=== PATIENT | female | born 1960 | race Caucasian/White ===

== ENCOUNTER → 2023-09-30 | Outpatient (CLI) | payer MEDICARE | END | disposition home or self-care (01) | LOC: RAH 09:29 | PROVIDERS: ATTEND Neurological Surgery | DX: Z01.818 Encounter for other preprocedural examination (principal); G89.4 Chronic pain syndrome; M41.84 Other forms of scoliosis, thoracic region | CPT/HCPCS: 71045; 93005 ==

== ENCOUNTER 2025-03-30 11:35 | Inpatient (IN) | payer MEDICARE ==
[~2025-03-30] VITALS: Ht 167.6 cm; Wt 65.8 kg
--- NOTE | 2025-03-30 11:47 | NUR ---
PATIENT PLACED IN ROOM
--- NOTE | 2025-03-30 11:48 | ERN ---
General Chief Complaint: Syncope Stated Complaint: SYNCOPE Time Seen by MD: 11:37 Source: patient History of Present Illness Initial Comments Mrs Huddleston, 65F with past medical history of hypertension, hypothyroidism, hyperlipidemia, recent right hip replacement this Wednesday,H/O spine stimulator came to the ED with a chief complaint of generalized body weakness, feeling of doom, nausea, multiple episodes of vomiting, head spinning since 1 hour after she got up for restroom. She reports it was sudden and had no history of such episodes before. She reports1 week ago she had an episode of low blood pressure in /48 but it improved over the week. She reports no fall or loss of consciousness or bowel/bladder incontinence or seizure-like activity. Timing/Duration: 1-3 hours Severity: moderate Associated Symptoms: diaphoresis, nausea/vomiting, shortness of breath, weakness Allergies: Coded Allergies: No Known Drug Allergies (Unverified Allergy, Unknown, 03/30/25) Past Medical History Past Medical History: Hypertension Past Surgical History: Other Surgical History Other: RIGHT HIP SX, BILATERAL SHOULDER ROTATOR CUFF Constitutional: (+) weakness EENTM: (-) eye pain, (-) blurred vision, (-) tearing, (-) double vision, (-) ear pain, (-) ear discharge, (-) nose pain, (-) nose congestion, (-) throat blanca n, (-) Throat swelling, (-) mouth pain, (-) tooth pain, (-) mouth swelling, (-) other documentation Respiratory: (+) short of breath Gastrointestinal/Abdominal: (+) nausea, (+) vomiting Genitourinary: (-) vaginal discharge, (-) vaginal bleeding, (-) dysuria, (-) frequency, (-) hematuria, (-) pain, (-) other documentation Musculoskeletal: (-) Neck pain, (-) back pain, (-) Flank Pain, (-) joint pain, (-) joint swelling, (-) muscle pain, (-) muscle stiffness, (-) gout, (-) other documentation Skin: (-) laceration, (-) contusion, (-) abrasion, (-) abscess, (-) rash, (-) change in color, (-) change in hair, (-) change in nails, (-) diaphoresis, (-) dryness, (-) other documentation Neuro: (+) weakness, (+) dizziness Psych: (-) depression, (-) suicidal ideation, (-) anxiety, (-) emotional problems, (-) auditory hallucinations, (-) visual hallucinations Hematologic/Lymphatic: (-) anemia, (-) blood clots, (-) easy bleeding, (-) easy bruising, (-) swollen glands, (-) other documentation Review of Systems: was completed, & the rest were negative. Physical Exam General Appearance: (+) no apparent distress Orientation: (+) alert, (+) oriented x 3 Head/Face Trauma: No Eye: bilateral eye normal inspection Ear, Nose, Throat: (+) hearing grossly normal Ear, Nose, Throat Comment Has hearing aids Neck: (+) normal inspection Respiratory: (+) chest non-tender, (+) lungs clear, (+) well ventilated Heart: (+) regular, (+) no gallop Vascular: (+) no edema Gastrointestinal: (+) soft, (+) non-tender, (+) no organomegaly Breast Exam: (+) deferred Genital: (+) deferred Rectal: (+) deferred Back Comment Has spine stimulator Extremities Comment Has right hip replacement surgery this Wednesday, dressed wound with no abnormal discharge or change in color Neurologic/Psychiatric: (+) normal speech, (+) no motor defecits, (+) no sensory deficits Skin: (+) normal color Results Laboratory and Microbiology Lab and Micro Result Laboratory Tests Test 03/30/25 12:04 03/30/25 12:07 Urine Color YELLOW (YELLOW) Urine Appearance CLOUDY (CLEAR) H Urine pH 5.5 (5.0-8.0) Urine Specific [place] 1.032 (1.001-1.031) Urine Protein 20 mg/dL (NEGATIVE) H Urine Glucose (UA) NEGATIVE mg/dL (NEGATIVE) Urine Ketones NEGATIVE mg/dL (NEGATIVE) Urine Occult Blood NEGATIVE (NEGATIVE) Urine Nitrate NEGATIVE (NEGATIVE) Urine Bilirubin NEGATIVE mg/dL (NEGATIVE) Urine Urobilinogen 2.0 mg/dL (0.2-1.0) H Urine Leukocyte Esterase 75 Chrissy/uL (NEGATIVE) H Urine RBC 11-25 /HPF (0-1) H Urine WBC 11-25 /HPF (0-1) H Urine Squamous Epithelial Cells FEW /HPF (0-2) Urine Non-Squamous Epithelial Cells 4 /HPF (0-2) Urine Bacteria FEW /HPF (None Seen) Urine Hyaline Casts 6-10 /LPF (0-1 /LPF) H White Blood Count 13.9 K/uL (4.8-10.8) H Red Blood Count 4.02 MIL/uL (4.00-5.50) Hemoglobin 12.2 g/dL (12.0-16.0) Hematocrit 37.1 % (36-48) Mean Corpuscular Volume 92.3 fL (79-99) Mean Corpuscular Hemoglobin 30.3 pg (27.0-33.0) Mean Corpuscular Hemoglobin Concent 32.9 g/dL (32.0-36.0) Red Cell Distribution Width 13.2 % (11.0-15.5) Platelet Count 263 K/uL (130-400) Mean Platelet Volume 8.8 fL (7.5-10.5) Nucleated Red Blood Cells 0.0 % (0.0-0.19) Sodium Level 139 mmol/L (136-145) Potassium Level 4.3 mmol/L (3.5-5.1) Chloride Level 102 mmol/L (101-111) Carbon Dioxide Level 29 mmol/L (21-32) Blood Urea Nitrogen 16 mg/dL (7-18) Creatinine 1.1 mg/dL (0.5-1.0) H Glomerular Filtration Rate Calc 55 mL/min (>90) Random Glucose 116 mg/dL (70-105) H Total Calcium 9.2 mg/dL (8.5-10.1) Labs Reviewed?: Yes EKG/XRAY/US/CT/MRI EKG Comment Rate 72 SD 169 QRSD 83 QT 398 Normal sinus rhythm X-RAY Comment Chest x-ray-NAD [facility] MDM: Differential diagnosis: Near-syncope, syncope, UTI, failed outpatient therapy, leukocytosis, Rationale: Tests considered and ordered secondary to shared decision making include: labs, ECG and radiology Previous outside records reviewed: Old ER visits. Risk of complication and/or morbidity or mortality of patient management: None Medications-Per medication reconciliation Need for hospitalization: Patient does meet criteria for hospitalization. Need for emergency major/minor surgery: No There are no social concerns with this patient. Prescription drug management Prescriptions will include symptomatic care Patient's prior external medical records from other ER visits were reviewed by me as indicated. Prior testing and results from previous visits were reviewed. Prior tests were taken into account with medical decision making and resource utilization, independent historian/historians were used to obtain complete medical history. I independently interpreted the test that were performed, results were reviewed by me and considered findings on radiology if ordered. Medical management and examination interpretation discussions were had by me with other qualified healthcare professionals as indicated for the patient's care. Patient will be admitted under the care of hospitalist group ED Course Orders Procedure Category Date Status Time Cbc Without LAB 03/30/25 Complete Differential 11:43 Basic Metabolic Panel LAB 03/30/25 Complete 11:43 Urinalysis Profile LAB 03/30/25 Complete 11:43 12 Lead Ekg Tracing- EKG 03/30/25 Logged Technical 11:54 Chest 1vw RAD 03/30/25 Taken 11:54 Culture Urine KATTY 03/30/25 Logged 12:29 Ceftriaxone 1g Vial PHA 03/30/25 Complete (Rocephine 1g Inj) 13:00 Lactated Ringers PHA 03/30/25 In Process 1000ml (Lactated 13:00 Current Medications Medications (Trade) Dose Ordered Sig/Felecia Route PRN Reason Start Time Stop Time Status Last Admin Dose Admin Ceftriaxone Sodium (ROCEphine 1G INJ) 1 gm ONCE ONCE IVPB 03/30/25 13:00 03/30/25 13:01 DC Lactated Ringer's 1,878 ml @ 626 mls/hr ONCE ONCE IV 03/30/25 13:00 03/30/25 15:59 Vital Signs Date Time Temp Pulse Resp B/P (MAP) Pulse Ox O2 Delivery O2 Flow Rate FiO2 03/30/25 11:50 98.2 75 15 120/67 98 Room Air* 0 21 03/30/25 11:36 98.2 95 16 124/97 96 Room Air 0 DX & DISP Disposition: Inpatient Decision to Admit Time: 13:04 Departure Impression: Primary Impression: Near syncope Additional Impression: UTI (urinary tract infection) Condition: Stable Referrals: TRAMAINE TABARES MD (PCP) SEN IVORY MD Mar 30, 2025 11:48 ADRIEL HANCOCK MD Mar 30, 2025 13:04
[2025-03-30 12:12] LABS: APPEARANCE,URINE CLOUDY (CLEAR); GLUCOSE, URINE (UA) NEGATIVE (NEGATIVE); LEUKOCYTE ESTERASE ,URINE 75 Leu/uL (NEGATIVE); NITRATE,URINE NEGATIVE (NEGATIVE); OCCULT BLOOD,URINE NEGATIVE (NEGATIVE)
[2025-03-30 12:17] LABS: NUCLEATED RED BLOOD CELLS 0.0 % (0.0-0.19); PLATELET COUNT (AUTO) 263.0 K/uL (130-400); RED BLOOD CELL COUNT(AUTO) 4.02 MIL/uL (4.00-5.50); RED CELL DISTRIBUTION WIDTH 13.2 % (11.0-15.5); WHITE BLOOD COUNT (AUTO) 13.9 K/uL (4.8-10.8)
[2025-03-30 12:26] LABS: CREATININE 1.1 mg/dL (0.5-1.0); GLOMERULAR FILTR. RATE CALC 55.0 mL/min (>90); GLUCOSE,RANDOM 116.0 mg/dL (70-105); SODIUM SERUM 139.0 mmol/L (136-145); UREA NITROGEN, BLOOD 16.0 mg/dL (7-18)
[2025-03-30 12:29] LABS: ADD UA MICROSCOPIC YES
[2025-03-30 12:31] LABS: NON-SQUAMOUS EPITHELIAL CELL 4 /HPF (0-2); SQUAMOUS EPITHELIAL CELL,UR FEW /HPF (0-2)
--- NOTE | 2025-03-30 13:39 | HMCIMG ---
EXAM: CR Chest, 1 View. CLINICAL HISTORY: shortness of breath COMPARISON: None provided. FINDINGS: LUNGS: There is no mass, infiltrate, or acute pulmonary abnormality. PLEURAL SPACES: No pleural effusion or pneumothorax. MEDIASTINUM: Cardiac size and mediastinal contours within normal limits. BONES: No acute osseous abnormality. IMPRESSION: No acute cardiopulmonary pathology is evident. /[place]
[2025-03-30 14:06] LABS: INR 0.97 (0.85-1.15)
--- NOTE | 2025-03-30 14:22 | NUR ---
DR. RICH AT BEDSIDE
[2025-03-30 14:30] LABS: CREATINE KINASE, TOTAL 442 U/L (21-232)
--- NOTE | 2025-03-30 15:02 | HMCIMG ---
EXAM: XR Abdomen, 1 View. CLINICAL HISTORY: constipation x 1 week Hx constipation x 1 week DICOM Hx DICOM Hx. COMPARISON: None provided. FINDINGS: LUNG BASES: Lung bases clear where seen. BOWEL: The bowel gas pattern is unremarkable. No bowel obstruction. PERITONEUM./SOFT TISSUES: No appreciable free air. No abnormal calcifications. Cardiac pacemaker is inserted in the right lower abdomen. Electrodes seen reaching to the left lower abdomen. BONES: Left side scoliosis of the lumbar spine. Right hip prosthesis. IMPRESSION: 1. No acute abdominal abnormalities. 2. Scoliosis of lumbar spine convexity to the left. 3. Cardiac pacemaker in the right lower abdomen with electrodes extending to the left lower abdomen. 4. Right hip prosthesis. /[place]
--- NOTE | 2025-03-30 15:40 | HMCIMG ---
CLINICAL INFORMATION Recent hip replacement, concern for DVT COMPARISON None. TECHNIQUE Pascual scale, color flow, and spectral Doppler sonography of the deep venous system of the lower extremity FINDINGS RIGHT Common femoral vein: Patent and easily compressible without intraluminal thrombus. Femoral vein: Patent and easily compressible without intraluminal thrombus. Popliteal vein: Patent and easily compressible without intraluminal thrombus. Doppler analysis: Normal venous flow including appropriate response to Valsalva, respiratory variation, and calf augmentation. CALF Posterior tibial vein: Patent and easily compressible without intraluminal thrombus. Peroneal veins: Patent and easily compressible without intraluminal thrombus. LEFT Common femoral vein: Patent and easily compressible without intraluminal thrombus. Femoral vein: Patent and easily compressible without intraluminal thrombus. Popliteal vein: Patent and easily compressible without intraluminal thrombus. Doppler analysis: Normal venous flow including appropriate response to Valsalva, respiratory variation, and calf augmentation. CALF Posterior tibial vein: Patent and easily compressible without intraluminal thrombus. Peroneal veins: Patent and easily compressible without intraluminal thrombus. IMPRESSION No deep venous thrombosis. /[place]
--- NOTE | 2025-03-30 16:52 | NUR ---
OTHROSTATIC VITALS: LAYING: HR 75 BP 138/55 SITTING: HR 83 BP 117/63 STANDING: HR 84 BP 122/65
--- NOTE | 2025-03-30 17:08 | NUR ---
CARDIOLOGY CONSULT DR LYON SPOKE TO DR DUEÑAS ABOUT PT CONSULT.
--- NOTE | 2025-03-30 17:31 | HP ---
[facility] HISTORY AND PHYSICAL Date of Service: Mar 30, 2025 Time of Service: 17:23 HISTORY OF PRESENT ILLNESS: Date of service: 03/30/2025, patient was seen in ER room 13 This is a 65-year-old female with history of hypertension, hypothyroidism, hyperlipidemia, recent history of total right hip arthroplasty in [place], [place] on March 26, 2025 in [facility] who presented to the ER after she had an episode of near-syncope with possible syncope. Patient states that she was sitting on the bedside commode when she felt nauseous, diaphoretic, lightheaded and felt unwell. She states that her noticed that she may have passed out for few seconds while this episode happened. She felt some chest discomfort as well with this episode. She denies any bowel incontinence, seizure-like activity, tongue biting, myalgia, she was sitting on the commode to urinate and she did have urinary incontinence during this episode. Patient states that she had a recent right total hip arthroplasty in [place], [place]. She was hospitalized on Wednesday and was released within 24 hours. Patient does state that she was hypotensive with blood pressure in the 80s prior to her discharge which resolved after IV fluids. She came back to the [place] on Wednesday of this week. She was doing well and denies any significant swelling of the lower extremities. She has stopped taking her antihypertensives due to episode of hypotension during her previous hospital stay. Patient denies any fevers or chills. She did have some nausea during the episod e of presyncope earlier today. Patient during current interview denies any chest pain, shortness of breath, pleurisy, or any significant symptoms. She states that she is feeling better. She does report that three weeks ago, she was treated for a urinary tract infection with ciprofloxacin. On presentation to the hospital, patient was noted to be afebrile with T-max of 98.2 F, heart rate of 95, blood pressure 124/97. [place] [address] with hemoglobin of 12.2, platelet count of 973043. BMP showed sodium of 139, potassium 4.3, chloride of 102, BUN of 16, creatinine 1.1, lactic acid of 1.4, CK of 442, cardiac troponin was noted to be negative at four, CRP of 134, procalcitonin of 0.05. Urinalysis showed cloudy urine with urinary tract infection with pyuria, and few bacteria. Patient will be admitted for evaluation and management of near-syncope with p ossible syncope. Patient with underlying urinary tract infection we will started on IV fluid resuscitation and IV antibiotics. We will monitor this patient closely given recent right hip arthroplasty. Consultation with Cardiology Infectious Disease will be requested. We will see how patient progresses in the next 24-48 hours. REVIEW OF SYSTEMS: CONSTITUTIONAL: Generalized malaise NEUROLOGICAL: Dizziness, lightheadedness, ENT: No hearing loss, otalgia, otorrhea, rhinitis, rhinorrhea, hoarseness, or sore throat. CARDIOVASCULAR: Patient may have had an episode of loss of consciousness today PULMONARY: Denies any shortness of breath, cough, phlegm/sputum, hemoptysis, pleuritic chest pain. SLEEP: Denies morning headaches, daytime somnolence or napping. Denies difficulty falling asleep, staying asleep, waking from sleep. Denies knowledge of snoring. GASTROINTESTINAL: Patient reported feeling nauseous this morning when the episode of dizziness happened. GENITOURINARY: Denies frequency, urgency, nocturia, hematuria or incontinence (Storage/Irritative symptoms.) Low urinary stream, straining to void, urinary intermittency or hesitancy, splitting of the voiding stream, terminal dribbling. ENDOCRINOLOGIC: Denies polyuria, polydipsia, polyphagia or heat/cold intolerances. HEMATOLOGIC: Denies thrombophilia/previous clots, or coagulopathy/bleeding disorders. ONCOLOGIC: Denies personal history of malignancy. DERMATOLOGIC: Denies rashes or pruritus. PSYCHIATRIC: Denies any suicidal or homicidal ideation. Denies hallucinations. PAST MEDICAL HISTORY: Hypertension, hypothyroidism, hyperlipidemia, recent history of urinary tract infection treated with ciprofloxacin three weeks ago PAST SURGICAL HISTORY: Patient reports having recent history of right hip arthroplasty on03/26/2025 in [place], [place], bilateral shoulder rotator cuff surgery as well, patient has a spinal cord stimulator as well PAST SOCIAL HISTORY: Patient denies active smoking or alcohol consumption FAMILY HISTORY: Denies pertinent family history Allergies: No known drug allergies Home medications: Patient reports being on carvedilol 12.5 mg b.i.d. which she has stopped taking due to recent history of hypotension, patient reports taking levothyroxine and family will be bringing home medication list to be reconciled and updated Coded Allergies: No Known Drug Allergies (Unverified Allergy, Unknown, 03/30/25) PHYSICAL EXAM: GENERAL APPEARANCE: The patient is awake, alert, and oriented, in no acute cardiopulmonary distress. NEUROLOGICAL: Cranial nerves II-XII grossly intact. Motor is 5/5 in bilateral upper and lower extremities proximal to distal. No sensory deficits. HEENT: Face is symmetric. Pupils are equal and reactive. Extraocular movements are intact. NECK: Supple. No JVD. No thyromegaly. No submental, submandibular, pre- /postauricular, occipital or supraclavicular lymphadenopathy. CHEST: Normal chest expansion. No Telemetry. LUNGS: Absence of any rales, rhonchi or any wheezing. CARDIOVASCULAR: Regular. S1 and S2 normal. No appreciable rubs, murmurs or gallops. ABDOMEN: Soft, nontender, and nondistended. There is no rebound, voluntary guarding, or rigidity. : Deferred. No [place]. EXTREMITIES: There is no significant swelling noted of bilateral lower extremity, right hip incision site appears clean dry and intact with VAC noted Vital Sign (Last 24 Hours) 03/30/25 16:51 Temp 98.2 Pulse 75 Resp 15 B/P (MAP) 138/55 Pulse Ox 96 O2 Delivery Room Air* O2 Flow Rate 0 FiO2 21 LABS: Laboratory: Test 03/30/25 14:03 03/30/25 12:07 03/30/25 12:04 Range/Units Lactic Acid Level 1.4 0.8-2.5 mmol/L White Blood Count 13.9 H 4.8-10.8 K/uL Red Blood Count 4.02 4.00-5.50 MIL/uL Hemoglobin 12.2 12.0-16.0 g/dL Hematocrit 37.1 36-48 % Mean Corpuscular Volume 92.3 79-99 fL Mean Corpuscular Hemoglobin 30.3 27.0-33.0 pg Mean Corpuscular Hemoglobin Concent 32.9 32.0-36.0 g/dL Red Cell Distribution Width 13.2 11.0-15.5 % Platelet Count 263 130-400 K/uL Mean Platelet Volume 8.8 7.5-10.5 fL Nucleated Red Blood Cells 0.0 0.0-0.19 % Prothrombin Time 10.3 9.6-11.6 SEC Prothromb Time International Ratio 0.97 0.85-1.15 Activated Partial Thromboplast Time 23.6 L 26.3-35.5 SEC Sodium Level 139 136-145 mmol/L Potassium Level 4.3 3.5-5.1 mmol/L Chloride Level 102 101-111 mmol/L Carbon Dioxide Level 29 21-32 mmol/L Blood Urea Nitrogen 16 7-18 mg/dL Creatinine 1.1 H 0.5-1.0 mg/dL Glomerular Filtration Rate Calc 55 >90 mL/min Random Glucose 116 H 70-105 mg/dL Total Calcium 9.2 8.5-10.1 mg/dL Total Creatine Kinase 442 *H 21-232 U/L Troponin I High Sensitivity < 4.0 L 4-50 ng/L C-Reactive Protein, Quantitative 134.20 H 0.5-3.0 mg/L Procalcitonin < 0.05 L 0.05-0.5 ng/mL Urine Color YELLOW YELLOW Urine Appearance CLOUDY H CLEAR Urine pH 5.5 5.0-8.0 Urine Specific [place] 1.032 H 1.001-1.031 Urine Protein 20 H NEGATIVE mg/dL Urine Glucose (UA) NEGATIVE NEGATIVE mg/dL Urine Ketones NEGATIVE NEGATIVE mg/dL Urine Occult Blood NEGATIVE NEGATIVE Urine Nitrate NEGATIVE NEGATIVE Urine Bilirubin NEGATIVE NEGATIVE mg/dL Urine Urobilinogen 2.0 H 0.2-1.0 mg/dL Urine Leukocyte Esterase 75 H NEGATIVE Chrissy/uL Urine RBC 11-25 H 0-1 /HPF Urine WBC 11-25 H 0-1 /HPF Urine Squamous Epithelial Cells FEW 0-2 /HPF Urine Non-Squamous Epithelial Cells 4 0-2 /HPF Urine Bacteria FEW None Seen /HPF Urine Hyaline Casts 6-10 H 0-1 /LPF /LPF Current Medications Medications (Trade) Dose Ordered Sig/Felecia Route PRN Reason Start Time Stop Time Status Last Admin Dose Admin Acetaminophen (TYLenol 325MG TAB) 650 mg Q6H PRN PO MILD PAIN (1-3) 03/30/25 14:00 04/29/25 13:59 Acetaminophen (TYLenol 325MG TAB) 650 mg Q6H PRN PO MILD PAIN (1-3) 03/30/25 14:00 04/29/25 13:59 Ceftriaxone Sodium (ROCEphine 1G INJ) 1 gm BID IVPB 03/30/25 21:00 04/09/25 20:59 Docusate Sodium (COLace 100MG CAP) 100 mg BID PO 03/30/25 21:00 04/29/25 20:59 Enoxaparin Sodium (Lovenox) 40 mg DAILY SQ 03/31/25 09:00 04/30/25 08:59 Famotidine (Pepcid 20mg Tab) 20 mg BID PO 03/30/25 21:00 04/29/25 20:59 Ondansetron HCl (zoFRAN 4MG INJ) 4 mg Q6H PRN IVP NAUSEA/VOMITING 03/30/25 14:00 04/29/25 13:59 Ondansetron HCl (zoFRAN 4MG INJ) 4 mg Q6H PRN IVP NAUSEA/VOMITING 03/30/25 14:00 04/29/25 13:59 Polyethylene Glycol (MIRalax 3350 17 GM POWD.PACK) 17 gm DAILY PRN PO constipation 03/30/25 14:00 04/29/25 13:59 Sodium Chloride 1,000 ml @ 75 mls/hr [id number] IV 03/30/25 16:00 04/29/25 15:59 DIAGNOSTICS / RADIOLOGY: SERVICE 1154 REASON: shortness of breath ORDERING PHYSICIAN: SEN IVORY MD PROCEDURE: CXR1VW - CHEST 1VW EXAM: CR Chest, 1 View. CLINICAL HISTORY: shortness of breath COMPARISON: None provided. FINDINGS: LUNGS: There is no mass, infiltrate, or acute pulmonary abnormality. PLEURAL SPACES: No pleural effusion or pneumothorax. MEDIASTINUM: Cardiac size and mediastinal contours within normal limits. BONES: No acute osseous abnormality. IMPRESSION: No acute cardiopulmonary pathology is evident. /[place] DICTATED BY: RAMIRO HORN MD DATE: 03/30/251436 ELECTRONICALLY SIGNED BY: RAMIRO HORN MD DATE: 03/30/251436 ASSESSMENT: Near-syncope with possible syncope, POA Possible vasovagal syncope, POA Leukocytosis, POA Urinary tract infection, POA Recent history of right knee arthroplasty in [place], [place], 03/26/2025, POA Recent history of UTI three weeks ago status post oral antibiotics, POA History of hypertension, POA Recent history of hypotension during hospitalization [place], [place], POA Hyperlipidemia, POA Hypothyroidism, POA History of spinal stimulator, POA Constipation x1 week, POA PLAN: Patient will be admitted to cardiac telemetry floor Patient received LR bolus in the ER, we will start patient on NS at 75 mL/hour We will obtain a venous Doppler to rule out any occult DVT, if D-Dimer is significantly elevated, will obtain CT PE protocol to r/o PE We will start patient on IV Rocephin 1 g b.i.d. for management of UTI Given recent history of right hip arthroplasty, we will monitor patient closely, we will request consultation with Cardiology to ensure there was no cardiac cause of near syncope/syncopal episode, patient denies any shortness of breath, pleurisy or chest pain, we will obtain a 2D echocardiogram as well We will request consultation with Infectious Disease We will request consultation with Wound Care with Dr. Beltran We will obtain orthostatic vitals to rule out orthostatic hypotension We will see how patient progresses in the next 24-48 hours, we will request consultation with Physical therapy tomorrow post right hip arthroplasty Home medications will be reconciled and updated We will keep patient on DVT prophylaxis with Lovenox, GI prophylaxis with Pepcid All labs will be repeated in the morning Date of service: 03/30/2025 Plan of care was discussed with patient at bedside, Hernán Hendricks MD Advanced Care Planning: Which of the following were discussed: Hospice care: Yes __ No _X_ Therapeutic options: Yes _X_ No __ Advance directives: Yes _X_ No __ Other discussions: Discussed with who?: Patient Voluntary nature of this service was explained to the patient? Yes _x_ No __ Amount of time spent: 20 minutes HERNÁN HENDRICKS MD Mar 30, 2025 17:31
--- NOTE | 2025-03-30 17:39 | NUR ---
REPORT GIVEN TO NURSE SHERICE
[2025-03-30 18:00] VITALS: BP 159/75; PULSE 79; RESP 18; TEMP 99.1; O2SAT 93
--- NOTE | 2025-03-30 18:51 | HMCIMG ---
EXAM: US Retroperitoneum Limited, Renal. CLINICAL HISTORY: UTI. TECHNIQUE: Real-time ultrasound of the retroperitoneum (limited) with image documentation. COMPARISON: Prior chest radiograph performed earlier on the same day at 13:06:46 hours, which does not show any urolithiasis. FINDINGS: RIGHT KIDNEY: Measures 8.8 x 5 x 3.8 cm. No hydronephrosis, renal stone, or mass visualized. The comparison chest radiograph does not show any urolithiasis. LEFT KIDNEY: Measures 8.7 x 5.3 x 3.8 cm. No hydronephrosis, renal stone, or mass visualized. URINARY BLADDER: Wall measures 2 mm. LIVER: Incidentally noted right lobar liver cyst measuring 1.8 x 1.8 x 2.1 cm. IMPRESSION: 1. Unremarkable ultrasound of the kidneys and urinary bladder. No urolithiasis, similar to the prior radiographs of the abdomen performed earlier on the same day at 13: 06: 46 hours. /[place]
--- NOTE | 2025-03-30 20:32 | NUR ---
PER NURSE ALICIA CONSENT AND IV, NURSE WILL CALL WHEN READY TO BRING PT DOWN
[2025-03-30] MEDS ORDERED: LEVO50CA5 PO (21:05)
[2025-03-30] MEDS ORDERED: CARV12.511 PO (21:05)
[2025-03-30] MEDS ORDERED: FLUV20CA PO (21:05)
[2025-03-30] MEDS ORDERED: ASPI-1443 PO (21:05)
[2025-03-30] MEDS: FAMOTIDINE 20MG TAB PO SCH (21:42)
[2025-03-30] MEDS: 0.9%NACL 1000ML 1,000 ML IV SCH (21:42)
[2025-03-30 22:00] VITALS: O2SAT 97
[2025-03-30 23:52] VITALS: BP 127/72; PULSE 81; RESP 18; TEMP 99
[2025-03-31] VITALS (7 sets, daily range): BP systolic 113–137; BP diastolic 62–79; PULSE 71–99; RESP 17–18; TEMP 98.1–98.9; O2SAT 95
[2025-03-31] MEDS ORDERED: IOHEXOL 350 MG/ML 100ML INFUS..BTL IV ONE (01:18)
--- NOTE | 2025-03-31 02:59 | HMCIMG ---
EXAM: CTA examination of the chest CLINICAL HISTORY: Possible Syncope. Recent hip replacement. Rule out pulmonary embolism. TECHNIQUE: Thin collimated axial CTA images of the chest were obtained, with sagittal and coronal reformatted images also submitted. A CT scan is done according to ALARA (As Low as Reasonably Achievable). CONTRAST USED: Contrast details are not available. COMPARISON: None provided. FINDINGS: The lungs are clear. Subtle bilateral posterior pleural thickening and minimal dependent atelectasis in the posterior basal segment of bilateral lower lobes. No pulmonary nodules. No pleural effusions. No pericardial effusion. The heart size is within normal limits. Scattered coronary artery calcifications. Subtle atherosclerotic calcification of the aortic arch and descending thoracic aorta. No thoracic aortic aneurysm or dissection. No filling defect or pulmonary thromboembolism. No axillary, supraclavicular, or mediastinal lymphadenopathy. Bilateral breast implants are identified. Post left hemithyroidectomy status. 5 mm hypodense lesion in the anterior aspect of the right lobe of the thyroid gland, and tiny calcific foci in the right lobe of the thyroid gland, probable changes of colloid nodules. A 2.1 cm cyst in segment 6 of the liver. Mild left-sided hydronephrosis. Mild hiatus hernia. Mild fatty infiltration of the liver. The remainder of the visualized upper abdomen is unremarkable. No acute or suspicious osseous abnormality. Mild osteopenia. S-shaped scoliosis of the thoracolumbar spine. Multilevel degenerative facet arthropathy in the lumbar spine. IMPRESSION: Normal contrast opacification of the pulmonary vasculature. No obvious evidence of pulmonary embolism. No evidence of aneurysmal dilatation or dissection of the thoracic aorta. Normal cardiac size. No pericardial effusion. Subtle bilateral posterior pleural thickening and minimal dependent atelectasis in the posterior basal segment of bilateral lower lobes. No acute infiltrates or effusion. Subcapsular cyst in segment 6 of the liver. Mild left-sided hydronephrosis. Mild hiatus hernia. Post left hemithyroidectomy status. Small hypodense lesion in the right lobe of the thyroid gland anteriorly and a tiny calcific focus in the right lobe. Probable colloid nodules. Consider further evaluation with an ultrasound. /Brandyn
--- NOTE | 2025-03-31 05:15 | EKG ---
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
[2025-03-31 06:02] LABS: IMMATURE GRANULOCYTE ABSOLUTE 0.04 K/uL (0-1); NUCLEATED RED BLOOD CELLS 0.0 % (0.0-0.19); PLATELET COUNT (AUTO) 262 K/uL (130-400); RED BLOOD CELL COUNT(AUTO) 3.84 MIL/uL (4.00-5.50); RED CELL DISTRIBUTION WIDTH 13.1 % (11.0-15.5); WHITE BLOOD COUNT (AUTO) 10.6 K/uL (4.8-10.8)
[2025-03-31 06:23] LABS: CREATININE 0.9 mg/dL (0.5-1.0); GLOMERULAR FILTR. RATE CALC 70.0 mL/min (>90); GLUCOSE,RANDOM 94.0 mg/dL (70-105); SODIUM SERUM 140.0 mmol/L (136-145); UREA NITROGEN, BLOOD 14.0 mg/dL (7-18)
[2025-03-31] MEDS: ENOXAPARIN SODIUM 40 MG/0.4 ML SYRINGE SQ SCH (08:33)
[2025-03-31] MEDS: ASPIRIN 81 MG EC TAB PO SCH (08:33)
--- NOTE | 2025-03-31 09:24 | PN ---
[facility] PROGRESS NOTE Date of Service: Mar 31, 2025 Time of Service: 09:20 SUBJECTIVE: Follow up visit for a 65-year-old female admitted to the hospital for syncope episode. Patient also on admission noted with urinalysis findings of UTI, initiated on IV Rocephin. So far urine culture is negative. Consultation with Cardiology has been requested pending evaluation. REVIEW OF SYSTEMS: CONSTITUTIONAL: Generalized malaise NEUROLOGICAL: Dizziness, lightheadedness, ENT: No hearing loss, otalgia, otorrhea, rhinitis, rhinorrhea, hoarseness, or sore throat. CARDIOVASCULAR: Patient may have had an episode of loss of consciousness today PULMONARY: Denies any shortness of breath, cough, phlegm/sputum, hemoptysis, pleuritic chest pain. SLEEP: Denies morning headaches, daytime somnolence or napping. Denies difficulty falling asleep, staying asleep, waking from sleep. Denies knowledge of snoring. GASTROINTESTINAL: Patient reported feeling nauseous this morning when the episode of dizziness happened. GENITOURINARY: Denies frequency, urgency, nocturia, hematuria or incontinence (Storage/Irritative symptoms.) Low urinary stream, straining to void, urinary intermittency or hesitancy, splitting of the voiding stream, terminal dribbling. ENDOCRINOLOGIC: Denies polyuria, polydipsia, polyphagia or heat/cold intolerances. HEMATOLOGIC: Denies thrombophilia/previous clots, or coagulopathy/bleeding disorders. ONCOLOGIC: Denies personal history of malignancy. DERMATOLOGIC: Denies rashes or pruritus. PSYCHIATRIC: Denies any suicidal or homicidal ideation. Denies hallucinations. PHYSICAL EXAM: GENERAL APPEARANCE: The patient is awake, alert, and oriented, in no acute cardiopulmonary distress. NEUROLOGICAL: Cranial nerves II-XII grossly intact. Motor is 5/5 in bilateral upper and lower extremities proximal to distal. No sensory deficits. HEENT: Face is symmetric. Pupils are equal and reactive. Extraocular movements are intact. NECK: Supple. No JVD. No thyromegaly. No submental, submandibular, pre- /postauricular, occipital or supraclavicular lymphadenopathy. CHEST: Normal chest expansion. No Telemetry. LUNGS: Absence of any rales, rhonchi or any wheezing. CARDIOVASCULAR: Regular. S1 and S2 normal. No appreciable rubs, murmurs or gallops. ABDOMEN: Soft, nontender, and nondistended. There is no rebound, voluntary guarding, or rigidity. : Deferred. No Mar[place]. EXTREMITIES: There is no significant swelling noted of bilateral lower extremity, right hip incision site appears clean dry and intact with VAC noted Vital Signs (last 8hr) Date Time Temp Pulse Resp B/P (MAP) Pulse Ox O2 Delivery O2 Flow Rate FiO2 03/31/25 08:44 Room Air* 0 21 03/31/25 08:05 98.2 71 18 135/76 87 Room Air 03/31/25 04:00 99.0 80 17 123/76 97 Room Air LABS: Laboratory: Test 03/31/25 05:50 03/30/25 14:03 03/30/25 12:07 03/30/25 12:04 Range/Units White Blood Count 10.6 4.8-10.8 K/uL Red Blood Count 3.84 L 4.00-5.50 MIL/uL Hemoglobin 11.6 L 12.0-16.0 g/dL Hematocrit 35.2 L 36-48 % Mean Corpuscular Volume 91.7 79-99 fL Mean Corpuscular Hemoglobin 30.2 27.0-33.0 pg Mean Corpuscular Hemoglobin Concent 33.0 32.0-36.0 g/dL Red Cell Distribution Width 13.1 11.0-15.5 % Platelet Count 262 130-400 K/uL Mean Platelet Volume 8.7 7.5-10.5 fL Immature Granulocyte % (Auto) 0.4 0-1 % Neutrophils (%) (Auto) 67.7 40.0-77.0 % Lymphocytes (%) (Auto) 21.5 21.0-51.0 % Monocytes (%) (Auto) 8.8 3.0-13.0 % Eosinophils (%) (Auto) 1.1 0.0-8.0 % Basophils (%) (Auto) 0.5 0.0-5.0 % Neutrophils # (Auto) 7.2 1.8-7.7 K/uL Lymphocytes # (Auto) 2.3 1.0-4.8 K/uL Monocytes # (Auto) 0.9 0.1-1.0 K/uL Eosinophils # (Auto) 0.12 0.00-0.70 K/uL Basophils # (Auto) 0.05 0.00-0.20 K/uL Absolute Immature Granulocyte (auto 0.04 0-1 K/uL Nucleated Red Blood Cells 0.0 0.0-0.19 % Sodium Level 140 136-145 mmol/L Potassium Level 4.0 3.5-5.1 mmol/L Chloride Level 105 101-111 mmol/L Carbon Dioxide Level 29 21-32 mmol/L Blood Urea Nitrogen 14 7-18 mg/dL Creatinine 0.9 0.5-1.0 mg/dL Glomerular Filtration Rate Calc 70 >90 mL/min Random Glucose 94 70-105 mg/dL Total Calcium 8.7 8.5-10.1 mg/dL Magnesium Level 2.10 1.80-2.40 mg/dL Lactic Acid Level 1.4 0.8-2.5 mmol/L Prothrombin Time 10.3 9.6-11.6 SEC Prothromb Time International Ratio 0.97 0.85-1.15 Activated Partial Thromboplast Time 23.6 L 26.3-35.5 SEC Total Creatine Kinase 442 *H 21-232 U/L Troponin I High Sensitivity < 4.0 L 4-50 ng/L C-Reactive Protein, Quantitative 134.20 H 0.5-3.0 mg/L Procalcitonin < 0.05 L 0.05-0.5 ng/mL Urine Color YELLOW YELLOW Urine Appearance CLOUDY H CLEAR Urine pH 5.5 5.0-8.0 Urine Specific [place] 1.032 H 1.001-1.031 Urine Protein 20 H NEGATIVE mg/dL Urine Glucose (UA) NEGATIVE NEGATIVE mg/dL Urine Ketones NEGATIVE NEGATIVE mg/dL Urine Occult Blood NEGATIVE NEGATIVE Urine Nitrate NEGATIVE NEGATIVE Urine Bilirubin NEGATIVE NEGATIVE mg/dL Urine Urobilinogen 2.0 H 0.2-1.0 mg/dL Urine Leukocyte Esterase 75 H NEGATIVE Chrissy/uL Urine RBC 11-25 H 0-1 /HPF Urine WBC 11-25 H 0-1 /HPF Urine Squamous Epithelial Cells FEW 0-2 /HPF Urine Non-Squamous Epithelial Cells 4 0-2 /HPF Urine Bacteria FEW None Seen /HPF Urine Hyaline Casts 6-10 H 0-1 /LPF /LPF Test 03/30/25 12:00 Range/Units D-Dimer Quantitative (PE/DVT) 3616 *H 0-500 ng/mL Current Medications Medications (Trade) Dose Ordered Sig/Felecia Route PRN Reason Start Time Stop Time Status Last Admin Dose Admin Acetaminophen (TYLenol 325MG TAB) 650 mg Q6H PRN PO MILD PAIN (1-3) 03/30/25 14:00 04/29/25 13:59 Acetaminophen (TYLenol 325MG TAB) 650 mg Q6H PRN PO MILD PAIN (1-3) 03/30/25 14:00 04/29/25 13:59 Aspirin (Aspirin 81mg Ec Tab) 81 mg BID PO 03/31/25 09:00 04/30/25 08:59 03/31/25 08:33 81 MG Atorvastatin Calcium (LIPItor 10MG) 5 mg HS PO 03/31/25 21:00 04/30/25 20:59 Ceftriaxone Sodium (ROCEphine 1G INJ) 1 gm BID IVPB 03/30/25 21:00 04/09/25 20:59 03/31/25 08:32 1 GM Docusate Sodium (COLace 100MG CAP) 100 mg BID PO 03/30/25 21:00 04/29/25 20:59 03/31/25 08:32 100 MG Enoxaparin Sodium (Lovenox) 40 mg DAILY SQ 03/31/25 09:00 04/30/25 08:59 03/31/25 08:33 40 MG Famotidine (Pepcid 20mg Tab) 20 mg BID PO 03/30/25 21:00 04/29/25 20:59 03/31/25 08:33 20 MG Hydralazine HCl (APRESOLine 20MG INJ) 5 mg Q6H PRN IV ADMINISTER FOR SBP > 160 03/30/25 22:30 04/29/25 22:29 Levothyroxine Sodium (SYNTHroid 50MCG TAB) 50 mcg SYN PO 03/31/25 06:30 04/30/25 06:29 Ondansetron HCl (zoFRAN 4MG INJ) 4 mg Q6H PRN IVP NAUSEA/VOMITING 03/30/25 14:00 04/29/25 13:59 Ondansetron HCl (zoFRAN 4MG INJ) 4 mg Q6H PRN IVP NAUSEA/VOMITING 03/30/25 14:00 04/29/25 13:59 Polyethylene Glycol (MIRalax 3350 17 GM POWD.PACK) 17 gm DAILY PRN PO constipation 03/30/25 14:00 04/29/25 13:59 Sodium Chloride 1,000 ml @ 75 mls/hr [id number] IV 03/30/25 16:00 04/29/25 15:59 03/30/25 21:42 75 MLS/HR DIAGNOSTICS / RADIOLOGY: [ ] ASSESSMENT: Near-syncope with possible syncope, POA Possible vasovagal syncope, POA Leukocytosis, POA Urinary tract infection, POA Recent history of right knee arthroplasty in [place], [place], 03/26/2025, POA Recent history of UTI three weeks ago status post oral antibiotics, POA History of hypertension, POA Recent history of hypotension during hospitalization [place], [place], POA Hyperlipidemia, POA Hypothyroidism, POA History of spinal stimulator, POA Constipation x1 week, POA Rhabdomyolysis POA PLAN: Continue admission to cardiac telemetry floor Continue NS at 75 mL/hour for now Continue IV Rocephin 1 g b.i.d. for management of UTI; follow up with cultures Given recent history of right hip arthroplasty, we will monitor patient closely. PT evaluation requested consultation with Cardiology to ensure there was no cardiac cause of near syncope/syncopal episode, patient denies any shortness of breath, pleurisy or chest pain, 2D echocardiogram requested, pending consultation with Infectious Disease requested We will request consultation with Wound Care with Dr. Beltran Monitor orthostatic vitals to rule out orthostatic hypotension PT OT evaluation Home medications will be reconciled and updated We will keep patient on DVT prophylaxis with Lovenox, GI prophylaxis with Pepcid All labs will be repeated in the morning P.r.n. medications for fever, pain, nausea, constipation Further orders per hospital course ZUNILDA CANTOR PAC Mar 31, 2025 09:24
--- NOTE | 2025-03-31 12:12 | NUR ---
INITIAL ASSESSMENT Patient lives with spouse, Eyal Huddleston. She has no home services but states her surgeon has ordered home health to come in for nursing and PT. Patient states she has not been called yet. Patient has cane, 2 wheel walker, rollator, toilet riser seat at home. She needs help with ADLs and does not drive. Spouse helps with transportation. PCP is Dr. Yasmin Sandy. [facility] in [place]. Patient has no issues with having stable senior care to live in or transportation. She and spouse have lived in their home for some time. No concerns voiced regarding not having enough food in the home. No safety concerns voiced regarding returning home. DCP is home. Addendum: 03/31/25 at 1217 by HERMELINDA SAGE SS Amended: Links added.
--- NOTE | 2025-03-31 14:21 | PN ---
INFECTIOUS DISEASE PROGRESS NOTE Date of Service: Mar 31, 2025 SUBJECTIVE: This is a 65-year-old female patient who was seen and examined at bedside in room 431. The preliminary urine culture results is growing Gram-negative rods. Patient remains afebrile and the WBC has trended down to 10.6. We will continue on ceftriaxone and follow up on the final culture results. PHYSICAL EXAM EYES: Anicteric. Pupils equal and reactive. HENT: No oral thrush seen, moist Oral mucosa NECK: Supple, no JVD or thyromegaly. LUNGS: Good air entry. No rales, no rhonchi. CARDIOVASCULAR: S1, S2 regular. No murmur heard. ABDOMEN: Soft, non tender, bowel sounds present, no organomegaly CENTRAL NERVOUS SYSTEM: Awake, alert, oriented x 3. No focal deficits. SKIN: No rashes, no swelling. LYMPHATICS: No peripheral lymphadenopathy MUSCULOSKELETAL: No joint swelling, erythema or tenderness. EXTREMITIES: No cyanosis or clubbing BACK: No deformity, no pressure ulcer. GENITOURINARY: No dysuria or hematuria Vital Sign (Last 12 Hours) 03/31/25 03/31/25 03/31/25 03/31/25 04:00 08:05 08:44 09:00 Temp 99.0 98.2 Pulse 80 71 99 Resp 17 18 B/P (MAP) 123/76 135/76 125/79 Pulse Ox 97 87 O2 Delivery Room Air Room Air Room Air* O2 Flow Rate 0 FiO2 21 03/31/25 03/31/25 03/31/25 09:00 09:00 12:00 Temp 98.2 Pulse 98 85 81 Resp 18 B/P (MAP) 119/77 137/73 126/70 Pulse Ox 96 O2 Delivery Room Air Intake & Output (last 24hrs) 0 03/30/25 03/30/25 03/31/25 15:00 23:00 07:00 Intake Total 875.0 ml Output Total 400 ml Balance 475.0 ml LABS: Laboratory: Test 03/31/25 05:50 03/30/25 14:03 03/30/25 12:07 03/30/25 12:04 Range/Units White Blood Count 10.6 4.8-10.8 K/uL Red Blood Count 3.84 L 4.00-5.50 MIL/uL Hemoglobin 11.6 L 12.0-16.0 g/dL Hematocrit 35.2 L 36-48 % Mean Corpuscular Volume 91.7 79-99 fL Mean Corpuscular Hemoglobin 30.2 27.0-33.0 pg Mean Corpuscular Hemoglobin Concent 33.0 32.0-36.0 g/dL Red Cell Distribution Width 13.1 11.0-15.5 % Platelet Count 262 130-400 K/uL Mean Platelet Volume 8.7 7.5-10.5 fL Immature Granulocyte % (Auto) 0.4 0-1 % Neutrophils (%) (Auto) 67.7 40.0-77.0 % Lymphocytes (%) (Auto) 21.5 21.0-51.0 % Monocytes (%) (Auto) 8.8 3.0-13.0 % Eosinophils (%) (Auto) 1.1 0.0-8.0 % Basophils (%) (Auto) 0.5 0.0-5.0 % Neutrophils # (Auto) 7.2 1.8-7.7 K/uL Lymphocytes # (Auto) 2.3 1.0-4.8 K/uL Monocytes # (Auto) 0.9 0.1-1.0 K/uL Eosinophils # (Auto) 0.12 0.00-0.70 K/uL Basophils # (Auto) 0.05 0.00-0.20 K/uL Absolute Immature Granulocyte (auto 0.04 0-1 K/uL Nucleated Red Blood Cells 0.0 0.0-0.19 % Sodium Level 140 136-145 mmol/L Potassium Level 4.0 3.5-5.1 mmol/L Chloride Level 105 101-111 mmol/L Carbon Dioxide Level 29 21-32 mmol/L Blood Urea Nitrogen 14 7-18 mg/dL Creatinine 0.9 0.5-1.0 mg/dL Glomerular Filtration Rate Calc 70 >90 mL/min Random Glucose 94 70-105 mg/dL Total Calcium 8.7 8.5-10.1 mg/dL Magnesium Level 2.10 1.80-2.40 mg/dL Lactic Acid Level 1.4 0.8-2.5 mmol/L Prothrombin Time 10.3 9.6-11.6 SEC Prothromb Time International Ratio 0.97 0.85-1.15 Activated Partial Thromboplast Time 23.6 L 26.3-35.5 SEC Total Creatine Kinase 442 *H 21-232 U/L Troponin I High Sensitivity < 4.0 L 4-50 ng/L C-Reactive Protein, Quantitative 134.20 H 0.5-3.0 mg/L Procalcitonin < 0.05 L 0.05-0.5 ng/mL Urine Color YELLOW YELLOW Urine Appearance CLOUDY H CLEAR Urine pH 5.5 5.0-8.0 Urine Specific [place] 1.032 H 1.001-1.031 Urine Protein 20 H NEGATIVE mg/dL Urine Glucose (UA) NEGATIVE NEGATIVE mg/dL Urine Ketones NEGATIVE NEGATIVE mg/dL Urine Occult Blood NEGATIVE NEGATIVE Urine Nitrate NEGATIVE NEGATIVE Urine Bilirubin NEGATIVE NEGATIVE mg/dL Urine Urobilinogen 2.0 H 0.2-1.0 mg/dL Urine Leukocyte Esterase 75 H NEGATIVE Chrissy/uL Urine RBC 11-25 H 0-1 /HPF Urine WBC 11-25 H 0-1 /HPF Urine Squamous Epithelial Cells FEW 0-2 /HPF Urine Non-Squamous Epithelial Cells 4 0-2 /HPF Urine Bacteria FEW None Seen /HPF Urine Hyaline Casts 6-10 H 0-1 /LPF /LPF Test 03/30/25 12:00 Range/Units D-Dimer Quantitative (PE/DVT) 3616 *H 0-500 ng/mL DIAGNOSTICS / RADIOLOGY: PATIENT: LUCIA GEORGE ACCT: [id number] LOC: [facility] U: [id number] AGE/SX: 65/F ROOM: [employer] RE03/30/[address]: JORGE LYON MD : 1960 BED: 1 DIS: STATUS: ADM IN TLOC: SPEC: [id number] AGNES: 03/30/25 STATUS: RES REQ: [id number] RECD: 03/31/[address] [place] [address] DR: SEN IVORY MD SOURCE: [facility]: 03/31/[address]: TRAMAINE TABARES MD [facility]: [facility] ADRIEL HANCOCK MD ORDERED: AERO ID & SENS Procedure Result Tom Date-Time AEROBIC ID & SENSITIVITIES Preliminary 03/31/25-1134 MRL COLONY DESCRIPTION: DAY 1: COLONY COUNT: >100,000 CFU/ML GRAM NEGATIVE RODS IDENTIFICATION AND SENSITIVITY TO FOLLOW ASSESSMENT: Urinary tract infection. Syncope. Left sided hydronephrosis. Recent right LUZ MARIA on 03/26/2025. Hypertension. PLAN: Continue ceftriaxone. We will follow up on the final culture results. Physical therapy to evaluate and treat. Continue GI prophylaxis. Continue pain management. This case was reviewed and discussed with my supervising physician Dr. Rich and the above assessment and plan was formulated and agreed upon. ATTESTATION BY PHYSICIAN I have seen and examined the patient. I reviewed the documentation, medical decision making, and treatment plan as noted by the mid-level provider above. I agree with the findings and plan of care. ROGER RICH MD, [facility] Mar 31, 2025 14:21
--- NOTE | 2025-03-31 22:37 | HMCSR ---
APPROVED REPORT EXAM: Two-dimensional and M-mode echocardiogram with Doppler and color Doppler. INDICATION ICD: Near syncope 2D Dimensions RVDd 3.6 cm LVEF(%) 64.5 (>50%) LVED Vol(simp.) 58.0 mL IVSd 0.8 (0.7-1.1cm) FS(%) 35 % LVES Vol(simp.) 17.0 mL LVDd 4.7 (3.8-5.6cm) LA (2D) 3.2 (1.6-4.0cm) LVEF(%, simp.) 71 % PWd 0.9 (0.7-1.1cm) Ao Root(2D) 3.0 (2.0-3.7cm) IVSs 1.0 cm LVOT diam 2.0 (1.8-2.4cm) LVDs 3.0 (2.5-4.0cm) IVC diam 1.1 cm PWs 1.3 cm Deformation Strain Apical 4 -20.4 % Apical 2 -20.6 % Apical 3 -22.1 % Global Strain -21.0 % M-Mode Dimensions EPSS 0.4 cm LA (MM) 3.6 (1.6-4.0cm) Ao Root(MM) 2.8 (2.0-3.7cm) Aortic Valve AoV Vmax 1.2 m/s Ao Peak GR 5.3 mmHg LVOT Vmax 1.0 m/s AoV VTI 0.3 m Ao Mean GR 3.5 mmHg LVOT VTI 0.22 m ISRAEL (VMAX) 2.70 cm2 ISRAEL (VTI) 2.7 cm2 Mitral Valve MV E Vmax 77.5 cm/s DECEL Time 169 ms MV A Vmax 85.9 cm/s P 1/2 T 46 ms E/A ratio 0.9 MVA (PHT) 4.7 cm2 TDI E/E' Medial 10.1 E/E' Lateral 8.5 Medial E' Peak V 7.71 cm/s Lateral E' Peak V 9.14 cm/s Pulmonary Valve PV Vmax 1.1 m/s PV VTI 0.21 m PV Mean GR 2.6 mmHg PV Peak GR 4.7 mmHg Tricuspid Valve TR Vmax 2.5 m/s RAP (EST) 3 mmHg RVSP 29.0 mmHg TR Peak GR 26.0 mmHg Left Ventricle The left ventricle is normal size. Normal left ventricular systolic wall motion. Mild concentric left ventricular hypertrophy. Left ventricular systolic function is normal, estimated LVEF is 60 to 65%. Stage I diastolic dysfunction. Right Ventricle The right ventricle is normal size. The right ventricular systolic function is normal. Atria The left atrium size is normal. The right atrium size is normal. Aortic Valve Aortic valve is trileaflet. The leaflets are mildly thickened and calcified. No aortic regurgitation is present. There is no aortic valvular stenosis. Mitral Valve Mild mitral annular calcification is noted. The leaflets are mildly thickened and calcified. Trace mitral regurgitation. There is no mitral valve stenosis. Tricuspid Valve The tricuspid valve is normal in structure. Mild tricuspid regurgitation. RVSP is 26mmHg. Pulmonic Valve Pulmonic valve is not well visualized. Great Vessels The aortic root is normal in size. The IVC is normal in size and collapses >50% with inspiration. Pericardium There is no pericardial effusion. Other Information Quality : Fair Conclusion The cardiac chambers are normal in size. Mild concentric left ventricular hypertrophy. Normal left ventricular systolic wall motion. Left ventricular systolic function is normal, estimated LVEF is 60 to 65%. Stage I diastolic dysfunction. Trace mitral regurgitation. Mild tricuspid regurgitation. PASP is 29 mmHg. There is no pericardial effusion.
[2025-04-01] VITALS (10 sets, daily range): BP systolic 126–148; BP diastolic 58–78; PULSE 68–78; RESP 16–18; TEMP 98–98.6; O2SAT 95
[2025-04-01 05:49] LABS: CREATININE 0.9 mg/dL (0.5-1.0); GLOMERULAR FILTR. RATE CALC 70.0 mL/min (>90); GLUCOSE,RANDOM 105.0 mg/dL (70-105); SODIUM SERUM 142.0 mmol/L (136-145); UREA NITROGEN, BLOOD 9.0 mg/dL (7-18)
[2025-04-01 05:53] LABS: IMMATURE GRANULOCYTE ABSOLUTE 0.05 K/uL (0-1); NUCLEATED RED BLOOD CELLS 0.0 % (0.0-0.19); PLATELET COUNT (AUTO) 242 K/uL (130-400); RED BLOOD CELL COUNT(AUTO) 3.31 MIL/uL (4.00-5.50); RED CELL DISTRIBUTION WIDTH 13.0 % (11.0-15.5); WHITE BLOOD COUNT (AUTO) 7.0 K/uL (4.8-10.8)
--- NOTE | 2025-04-01 10:54 | PN ---
[facility] PROGRESS NOTE Date of Service: Apr 01, 2025 Time of Service: 10:52 SUBJECTIVE: Follow up visit for a 65-year-old female admitted to the hospital for syncope episode. Patient also on admission noted with urinalysis findings of UTI, initiated on IV Rocephin. So far urine culture is negative. Consultation with Cardiology has been requested pending evaluation. 04/01/2025: Over the past 24 hours no major events reported. 2D echo revealed EF of 60-65%. Patient remains on IV Rocephin for acute UTI, cultures showing E coli. Morning labs reviewed. REVIEW OF SYSTEMS: CONSTITUTIONAL: Generalized malaise NEUROLOGICAL: Dizziness, lightheadedness, ENT: No hearing loss, otalgia, otorrhea, rhinitis, rhinorrhea, hoarseness, or sore throat. CARDIOVASCULAR: Patient may have had an episode of loss of consciousness today PULMONARY: Denies any shortness of breath, cough, phlegm/sputum, hemoptysis, pleuritic chest pain. SLEEP: Denies morning headaches, daytime somnolence or napping. Denies difficulty falling asleep, staying asleep, waking from sleep. Denies knowledge of snoring. GASTROINTESTINAL: Patient reported feeling nauseous this morning when the episode of dizziness happened. GENITOURINARY: Denies frequency, urgency, nocturia, hematuria or incontinence (Storage/Irritative symptoms.) Low urinary stream, straining to void, urinary intermittency or hesitancy, splitting of the voiding stream, terminal dribbling. ENDOCRINOLOGIC: Denies polyuria, polydipsia, polyphagia or heat/cold intolerances. HEMATOLOGIC: Denies thrombophilia/previous clots, or coagulopathy/bleeding disorders. ONCOLOGIC: Denies personal history of malignancy. DERMATOLOGIC: Denies rashes or pruritus. PSYCHIATRIC: Denies any suicidal or homicidal ideation. Denies hallucinations. PHYSICAL EXAM: GENERAL APPEARANCE: The patient is awake, alert, and oriented, in no acute cardiopulmonary distress. NEUROLOGICAL: Cranial nerves II-XII grossly intact. Motor is 5/5 in bilateral upper and lower extremities proximal to distal. No sensory deficits. HEENT: Face is symmetric. Pupils are equal and reactive. Extraocular movements are intact. NECK: Supple. No JVD. No thyromegaly. No submental, submandibular, pre- /postauricular, occipital or supraclavicular lymphadenopathy. CHEST: Normal chest expansion. No Telemetry. LUNGS: Absence of any rales, rhonchi or any wheezing. CARDIOVASCULAR: Regular. S1 and S2 normal. No appreciable rubs, murmurs or gallops. ABDOMEN: Soft, nontender, and nondistended. There is no rebound, voluntary guarding, or rigidity. : Deferred. No Mar[place]. EXTREMITIES: There is no significant swelling noted of bilateral lower extremity, right hip incision site appears clean dry and intact with VAC noted Vital Signs (last 8hr) Date Time Temp Pulse Resp B/P (MAP) Pulse Ox O2 Delivery O2 Flow Rate FiO2 04/01/25 08:39 95 Room Air* 0 21 04/01/25 08:00 98.1 78 16 135/71 96 Room Air 04/01/25 04:32 98.1 68 18 140/68 98 Room Air LABS: Laboratory: Test 04/01/25 04:49 03/31/25 05:50 03/30/25 14:03 03/30/25 12:07 Range/Units White Blood Count 7.0 # 4.8-10.8 K/uL Red Blood Count 3.31 L 4.00-5.50 MIL/uL Hemoglobin 10.2 L 12.0-16.0 g/dL Hematocrit 30.4 L 36-48 % Mean Corpuscular Volume 91.8 79-99 fL Mean Corpuscular Hemoglobin 30.8 27.0-33.0 pg Mean Corpuscular Hemoglobin Concent 33.6 32.0-36.0 g/dL Red Cell Distribution Width 13.0 11.0-15.5 % Platelet Count 242 130-400 K/uL Mean Platelet Volume 8.8 7.5-10.5 fL Immature Granulocyte % (Auto) 0.7 0-1 % Neutrophils (%) (Auto) 56.0 40.0-77.0 % Lymphocytes (%) (Auto) 28.2 21.0-51.0 % Monocytes (%) (Auto) 12.4 3.0-13.0 % Eosinophils (%) (Auto) 2.3 0.0-8.0 % Basophils (%) (Auto) 0.4 0.0-5.0 % Neutrophils # (Auto) 3.9 1.8-7.7 K/uL Lymphocytes # (Auto) 2.0 1.0-4.8 K/uL Monocytes # (Auto) 0.9 0.1-1.0 K/uL Eosinophils # (Auto) 0.16 0.00-0.70 K/uL Basophils # (Auto) 0.03 0.00-0.20 K/uL Absolute Immature Granulocyte (auto 0.05 0-1 K/uL Nucleated Red Blood Cells 0.0 0.0-0.19 % Sodium Level 142 136-145 mmol/L Potassium Level 3.9 3.5-5.1 mmol/L Chloride Level 109 101-111 mmol/L Carbon Dioxide Level 26 21-32 mmol/L Blood Urea Nitrogen 9 7-18 mg/dL Creatinine 0.9 0.5-1.0 mg/dL Glomerular Filtration Rate Calc 70 >90 mL/min Random Glucose 105 70-105 mg/dL Total Calcium 8.4 L 8.5-10.1 mg/dL Magnesium Level 2.10 1.80-2.40 mg/dL Lactic Acid Level 1.4 0.8-2.5 mmol/L Prothrombin Time 10.3 9.6-11.6 SEC Prothromb Time International Ratio 0.97 0.85-1.15 Activated Partial Thromboplast Time 23.6 L 26.3-35.5 SEC Total Creatine Kinase 442 *H 21-232 U/L Troponin I High Sensitivity < 4.0 L 4-50 ng/L C-Reactive Protein, Quantitative 134.20 H 0.5-3.0 mg/L Procalcitonin < 0.05 L 0.05-0.5 ng/mL Test 03/30/25 12:04 03/30/25 12:00 Range/Units Urine Color YELLOW YELLOW Urine Appearance CLOUDY H CLEAR Urine pH 5.5 5.0-8.0 Urine Specific [place] 1.032 H 1.001-1.031 Urine Protein 20 H NEGATIVE mg/dL Urine Glucose (UA) NEGATIVE NEGATIVE mg/dL Urine Ketones NEGATIVE NEGATIVE mg/dL Urine Occult Blood NEGATIVE NEGATIVE Urine Nitrate NEGATIVE NEGATIVE Urine Bilirubin NEGATIVE NEGATIVE mg/dL Urine Urobilinogen 2.0 H 0.2-1.0 mg/dL Urine Leukocyte Esterase 75 H NEGATIVE Chrissy/uL Urine RBC 11-25 H 0-1 /HPF Urine WBC 11-25 H 0-1 /HPF Urine Squamous Epithelial Cells FEW 0-2 /HPF Urine Non-Squamous Epithelial Cells 4 0-2 /HPF Urine Bacteria FEW None Seen /HPF Urine Hyaline Casts 6-10 H 0-1 /LPF /LPF D-Dimer Quantitative (PE/DVT) 3616 *H 0-500 ng/mL Current Medications Medications (Trade) Dose Ordered Sig/Felecia Route PRN Reason Start Time Stop Time Status Last Admin Dose Admin Acetaminophen (TYLenol 325MG TAB) 650 mg Q6H PRN PO MILD PAIN (1-3) 03/30/25 14:00 04/29/25 13:59 03/31/25 17:01 650 MG Acetaminophen (TYLenol 325MG TAB) 650 mg Q6H PRN PO MILD PAIN (1-3) 03/30/25 14:00 04/29/25 13:59 Aspirin (Aspirin 81mg Ec Tab) 81 mg BID PO 03/31/25 09:00 04/30/25 08:59 04/01/25 08:55 81 MG Atorvastatin Calcium (LIPItor 10MG) 5 mg HS PO 03/31/25 21:00 04/30/25 20:59 03/31/25 20:21 5 MG Ceftriaxone Sodium (ROCEphine 1G INJ) 1 gm BID IVPB 03/30/25 21:00 04/09/25 20:59 04/01/25 08:55 1 GM Docusate Sodium (COLace 100MG CAP) 100 mg BID PO 03/30/25 21:00 04/29/25 20:59 04/01/25 08:56 100 MG Enoxaparin Sodium (Lovenox) 40 mg DAILY SQ 03/31/25 09:00 04/30/25 08:59 04/01/25 08:53 40 MG Famotidine (Pepcid 20mg Tab) 20 mg BID PO 03/30/25 21:00 04/29/25 20:59 04/01/25 08:56 20 MG Hydralazine HCl (APRESOLine 20MG INJ) 5 mg Q6H PRN IV ADMINISTER FOR SBP > 160 03/30/25 22:30 04/29/25 22:29 Levothyroxine Sodium (SYNTHroid 50MCG TAB) 50 mcg SYN PO 03/31/25 06:30 04/30/25 06:29 04/01/25 06:00 50 MCG Ondansetron HCl (zoFRAN 4MG INJ) 4 mg Q6H PRN IVP NAUSEA/VOMITING 03/30/25 14:00 04/29/25 13:59 03/31/25 18:53 4 MG Ondansetron HCl (zoFRAN 4MG INJ) 4 mg Q6H PRN IVP NAUSEA/VOMITING 03/30/25 14:00 04/29/25 13:59 Polyethylene Glycol (MIRalax 3350 17 GM POWD.PACK) 17 gm DAILY PRN PO constipation 03/30/25 14:00 04/29/25 13:59 Sodium Chloride 1,000 ml @ 75 mls/hr [id number] IV 03/30/25 16:00 04/29/25 15:59 03/30/25 21:42 75 MLS/HR DIAGNOSTICS / RADIOLOGY: [ ] ASSESSMENT: Near-syncope with possible syncope, POA Possible vasovagal syncope, POA Leukocytosis, POA Urinary tract infection, POA Recent history of right knee arthroplasty in [place], [place], 03/26/2025, POA Recent history of UTI three weeks ago status post oral antibiotics, POA History of hypertension, POA Recent history of hypotension during hospitalization [place], [place], POA Hyperlipidemia, POA Hypothyroidism, POA History of spinal stimulator, POA Constipation x1 week, POA Rhabdomyolysis POA PLAN: Continue admission to cardiac telemetry floor DC IVF Continue IV Rocephin 1 g b.i.d. for management of UTI Given recent history of right hip arthroplasty, we will monitor patient closely. PT evaluation requested consultation with Cardiology to ensure there was no cardiac cause of near syncope/syncopal episode, patient denies any shortness of breath, pleurisy or chest pain, 2D echocardiogram EF 60 65% consultation with Infectious Disease requested We requested consultation with Wound Care with Dr. Beltran Monitor orthostatic vitals to rule out orthostatic hypotension PT OT evaluation Home medications will be reconciled and updated We will keep patient on DVT prophylaxis with Lovenox, GI prophylaxis with Pepcid All labs will be repeated in the morning P.r.n. medications for fever, pain, nausea, constipation Further orders per hospital course ZUNILDA CANTOR PAC Apr 01, 2025 10:54
--- NOTE | 2025-04-01 19:24 | CONS ---
Cardiology Consult Note Cardiology Attending: Alicia Thompson Consulting Physician: Iliaist Date of Service: 04/01/25 Reason for Consult: Syncope HPI: This is a 65-year-old female with a past medical history of HTN, hypothyroidism, chronic back pain status post multiple surgeries, currently with a back stimulator in place, and osteoarthritis status post right hip replacement done on 03/26/2025 who presents after experiencing a syncopal event. The event occurred on Wednesday morning, with the patient was walking to the restroom. The patient states that she developed dizziness and subsequently lost consciousness and fell to the floor. The event lasted 1 minute and was witnessed by her . During this timeframe the patient lost bladder control. There was no reports of tonic-clonic movements. Once the patient awoke she denied experiencing a postictal state. She was extremely nauseated and vomited multiple times. She denied any other active complaints including headache, chest pain, chest pressure, palpitations, shortness of breath, PND, orthopnea, or lower extremity swelling/edema. These symptoms prompted the patient to come to the hospital for further evaluation and treatment. While on the inpatient service she has undergone an extensive workup which has included a CTA PE protocol which was negative for a PE and continuous telemetry monitoring which did not reveal any arrhythmia. She was incidentally found to have a UTI and has since been started on antibiotics. At the time my evaluation patient complained of pain in her right hip but denied any other active issues. PMH: Listed above PSH: Listed above FH: Significant for CAD, HTN, CKD and CVA. SH: Denies alcohol, tobacco, or illicit drug use. Medications: Levothyroxine, carvedilol 12.5 mg b.i.d., oxycodone Allergies: Coded Allergies: No Known Drug Allergies (Unverified Allergy, Unknown, 03/30/25) Review of systems: General: Denies fever or chills HEENT: Denies changes in vision, earache or sore throat Neck: Denies pain or stiffness Cardio: As per the HPI Pulm: Denies SOB, coughing or wheezing GI: Denies abdominal pain, nausea, vomiting, diarrhea, or constipation. MSK: Positive for pain in the right hip. Heme: Denies anemia, easy bruising, or bleeding. Neuro: As per the HPI. Psych: Denies anxiety, depression, or suicide ideations. Physical Exam: Vital Signs Date Time Temp Pulse Resp B/P (MAP) Pulse Ox O2 Delivery O2 Flow Rate FiO2 04/01/25 16:00 98.2 76 18 145/58 96 Room Air 04/01/25 08:39 0 21 General: Alert and oriented x 3. NAD HEENT: NC/AT. Oral mucosa is moist. Neck: No masses, JVD, or carotid bruits Lungs: NRD. SCM. B/L CTA. No wheezing, rales or rhonchi. Cardio: Rate @ 77bpm. Normal S1 and S2. +S4. PMI was not displaced. Abdomen: Soft. NT. ND. Normal active bowel sounds x 4 quadrants. Extremities: Diminished throughout Neuro: CN II-XII were grossly intact. No focal deficits. Labs: Laboratory Tests Test 04/01/25 04:49 Range/Units White Blood Count 7.0 # 4.8-10.8 K/uL Red Blood Count 3.31 L 4.00-5.50 MIL/uL Hemoglobin 10.2 L 12.0-16.0 g/dL Hematocrit 30.4 L 36-48 % Mean Corpuscular Volume 91.8 79-99 fL Mean Corpuscular Hemoglobin 30.8 27.0-33.0 pg Mean Corpuscular Hemoglobin Concent 33.6 32.0-36.0 g/dL Red Cell Distribution Width 13.0 11.0-15.5 % Platelet Count 242 130-400 K/uL Mean Platelet Volume 8.8 7.5-10.5 fL Immature Granulocyte % (Auto) 0.7 0-1 % Neutrophils (%) (Auto) 56.0 40.0-77.0 % Lymphocytes (%) (Auto) 28.2 21.0-51.0 % Monocytes (%) (Auto) 12.4 3.0-13.0 % Eosinophils (%) (Auto) 2.3 0.0-8.0 % Basophils (%) (Auto) 0.4 0.0-5.0 % Neutrophils # (Auto) 3.9 1.8-7.7 K/uL Lymphocytes # (Auto) 2.0 1.0-4.8 K/uL Monocytes # (Auto) 0.9 0.1-1.0 K/uL Eosinophils # (Auto) 0.16 0.00-0.70 K/uL Basophils # (Auto) 0.03 0.00-0.20 K/uL Absolute Immature Granulocyte (auto 0.05 0-1 K/uL Nucleated Red Blood Cells 0.0 0.0-0.19 % Sodium Level 142 136-145 mmol/L Potassium Level 3.9 3.5-5.1 mmol/L Chloride Level 109 101-111 mmol/L Carbon Dioxide Level 26 21-32 mmol/L Blood Urea Nitrogen 9 7-18 mg/dL Creatinine 0.9 0.5-1.0 mg/dL Glomerular Filtration Rate Calc 70 >90 mL/min Random Glucose 105 70-105 mg/dL Total Calcium 8.4 L 8.5-10.1 mg/dL ECG 03/31/2025: Sinus rhythm. No ST elevation or depression noted. No obvious Q-waves. Heart rate 72 beats per minute. Telemetry: Sinus rhythm. No arrhythmias identified. Echocardiogram 03/31/2025: The cardiac chambers are normal in size. Mild concentric left ventricular hypertrophy. Normal left ventricular systolic wall motion. Left ventricular systolic function is normal, estimated LVEF is 60 to 65%. Stage I diastolic dysfunction. Trace mitral regurgitation. Mild tricuspid regurgitation. PASP is 29 mmHg. There is no pericardial effusion. Assessment: 1. Syncope 2. UTI 3. Osteoarthritis status post right hip replacement done on 03/26/2025 4. HTN 5. Hypothyroidism Plan: 1. Syncope -Stable -ECG 03/31/2025: Sinus rhythm. No ST elevation or depression noted. No obvious Q-waves. Heart rate 72 beats per minute. -Telemetry: Sinus rhythm. No arrhythmias identified. -echocardiogram 03/31/2025: Normal left ventricle systolic function. No wall motion abnormalities were seen. Left ventricle systolic function is normal, estimated LVEF 60-65%. -the patient presents after experiencing a syncopal event. The event occurred on Wednesday morning while the patient was walking to the restroom. The event was likely multifactorial in origin with excessive blood pressure medication (home regimen: Carvedilol 12.5 mg b.i.d.), pain medication (the patient was recently prescribed oxycodone for pain control status post right hip replacement done on 03/26/2025), a UTI, and volume depletion all contributing to the event. With that being said we recommend decreasing carvedilol from 12.5 to 3.125 mg BID. In addition we recommend stopping oxycodone and treating the UTI. We do not recommend any further cardiac workup or treatment. 2. HTN -overly controlled -recommend decreasing carvedilol to 3.125 mg BID Okay to DC from a cardiology standpoint. Please have the patient follow up with Cardiology, in 1-2 weeks. At that time we will reassess her blood pressure medications. ALICIA THOMPSON MD Apr 01, 2025 19:24
--- NOTE | 2025-04-01 21:51 | PN ---
INFECTIOUS DISEASE PROGRESS NOTE Date of Service: Apr 01, 2025 SUBJECTIVE: This is a 65-year-old female patient who was seen and examined at bedside in room 431. Patient is a recent right LUZ MARIA and has a Prevena wound VAC in placed. The final urine culture results came back positive with E coli. We will continue on ceftriaxone. Patient was updated with these findings. Patient remains afebrile and the WBC has trended down to 7.0. PHYSICAL EXAM EYES: Anicteric. Pupils equal and reactive. HENT: No oral thrush seen, moist Oral mucosa NECK: Supple, no JVD or thyromegaly. LUNGS: Good air entry. No rales, no rhonchi. CARDIOVASCULAR: S1, S2 regular. No murmur heard. ABDOMEN: Soft, non tender, bowel sounds present. CENTRAL NERVOUS SYSTEM: Awake, alert, oriented x 3. SKIN: No rashes, no swelling. LYMPHATICS: No peripheral lymphadenopathy MUSCULOSKELETAL: No joint swelling, erythema or tenderness. EXTREMITIES: No cyanosis or clubbing. Recent right LUZ MARIA with Prevena wound VAC in placed. BACK: No deformity, no pressure ulcer. GENITOURINARY: No dysuria or hematuria. Vital Sign (Last 12 Hours) 04/01/25 04/01/25 04/01/25 04/01/25 12:00 16:00 17:30 20:00 Temp 98.2 98.2 98.6 Pulse 73 76 78 Resp 16 18 17 B/P (MAP) 148/77 145/58 141/77 133/72 Pulse Ox 96 96 95 O2 Delivery Room Air Room Air Room Air 04/01/25 21:02 B/P (MAP) 133/72 Intake & Output (last 24hrs) 03/31/25 03/31/25 04/01/25 15:00 23:00 07:00 Intake Total 1200 ml 1041.0 ml 700 ml Output Total 300 ml 800 ml Balance 1200 ml 741.0 ml -100 ml LABS: Laboratory: Test 04/01/25 04:49 03/31/25 05:50 Range/Units White Blood Count 7.0 # 4.8-10.8 K/uL Red Blood Count 3.31 L 4.00-5.50 MIL/uL Hemoglobin 10.2 L 12.0-16.0 g/dL Hematocrit 30.4 L 36-48 % Mean Corpuscular Volume 91.8 79-99 fL Mean Corpuscular Hemoglobin 30.8 27.0-33.0 pg Mean Corpuscular Hemoglobin Concent 33.6 32.0-36.0 g/dL Red Cell Distribution Width 13.0 11.0-15.5 % Platelet Count 242 130-400 K/uL Mean Platelet Volume 8.8 7.5-10.5 fL Immature Granulocyte % (Auto) 0.7 0-1 % Neutrophils (%) (Auto) 56.0 40.0-77.0 % Lymphocytes (%) (Auto) 28.2 21.0-51.0 % Monocytes (%) (Auto) 12.4 3.0-13.0 % Eosinophils (%) (Auto) 2.3 0.0-8.0 % Basophils (%) (Auto) 0.4 0.0-5.0 % Neutrophils # (Auto) 3.9 1.8-7.7 K/uL Lymphocytes # (Auto) 2.0 1.0-4.8 K/uL Monocytes # (Auto) 0.9 0.1-1.0 K/uL Eosinophils # (Auto) 0.16 0.00-0.70 K/uL Basophils # (Auto) 0.03 0.00-0.20 K/uL Absolute Immature Granulocyte (auto 0.05 0-1 K/uL Nucleated Red Blood Cells 0.0 0.0-0.19 % Sodium Level 142 136-145 mmol/L Potassium Level 3.9 3.5-5.1 mmol/L Chloride Level 109 101-111 mmol/L Carbon Dioxide Level 26 21-32 mmol/L Blood Urea Nitrogen 9 7-18 mg/dL Creatinine 0.9 0.5-1.0 mg/dL Glomerular Filtration Rate Calc 70 >90 mL/min Random Glucose 105 70-105 mg/dL Total Calcium 8.4 L 8.5-10.1 mg/dL Magnesium Level 2.10 1.80-2.40 mg/dL DIAGNOSTICS / RADIOLOGY: PATIENT: LUCIA GEORGE ACCT: [id number] LOC: [facility] U: [id number] AGE/SX: 65/F ROOM: [facility] RE03/30/[address]: JORGE LYON MD : 1960 BED: 1 DIS: STATUS: ADM IN TLOC: SPEC: [id number] AGNES: 03/30/25 STATUS: COMP REQ: [id number] RECD: 03/31/25 [facility] DR: SEN IVORY MD SOURCE: [facility]: 03/31/[address] [facility]: TRAMAINE TABARES [facility] ADRIEL ALVARE[facility] MD ORDERED: AERO ID & SENS Procedure Result Tom Date-Time ------ ------ AEROBIC ID & SENSITIVITIES Final 04/01/25 [facility] COLONY DESCRIPTION: DAY 1: COLONY COUNT: >100,000 CFU/ML GRAM NEGATIVE RODS IDENTIFICATION AND SENSITIVITY TO FOLLOW ESCHERICHIA COLI E COLI M.I.C. RX --------- ---- AMPICILLIN >16 R AZTREONAM <=4 S CEFAZOLIN 8 R CEFTAZIDIME/AVIBACTAM <=8 S CEFTRIAXONE <=1 S CIPROFLOXACIN >2 R GENTAMICIN <=2 S LEVOFLOXACIN >4 R NITROFURANTOIN <=32 S MEROPENEM <=1 S PIPERACILLIN/TAZOBACTAM <=8 S TRIMETHOPRIM/SUFLAMETHOXAZOLE <=2/38 S ASSESSMENT: Urinary tract infection with E coli. Syncope. Left sided hydronephrosis. Recent right LUZ MARIA on 03/26/2025 with a Prevena wound VAC in place. Hypertension. PLAN: Continue ceftriaxone. We will follow up on the final culture results. Physical therapy to evaluate and treat. Continue GI prophylaxis. Continue pain management. This case was reviewed and discussed with my supervising physician Dr. Rich and the above assessment and plan was formulated and agreed upon. ATTESTATION BY PHYSICIAN I have seen and examined the patient. I reviewed the documentation, medical decision making, and treatment plan as noted by the mid-level provider above. I agree with the findings and plan of care. ROGER RICH MD, [facility] Apr 01, 2025 21:51
[2025-04-02] VITALS (8 sets, daily range): BP systolic 115–139; BP diastolic 62–79; PULSE 68–84; RESP 16–18; TEMP 97.8–98.1; O2SAT 96–99
[2025-04-02 03:27] LABS: IMMATURE GRANULOCYTE ABSOLUTE 0.04 K/uL (0-1); NUCLEATED RED BLOOD CELLS 0.0 % (0.0-0.19); PLATELET COUNT (AUTO) 255 K/uL (130-400); RED BLOOD CELL COUNT(AUTO) 3.44 MIL/uL (4.00-5.50); RED CELL DISTRIBUTION WIDTH 12.9 % (11.0-15.5); WHITE BLOOD COUNT (AUTO) 7.4 K/uL (4.8-10.8)
[2025-04-02 03:35] LABS: CREATININE 0.9 mg/dL (0.5-1.0); GLOMERULAR FILTR. RATE CALC 70.0 mL/min (>90); GLUCOSE,RANDOM 96.0 mg/dL (70-105); SODIUM SERUM 143.0 mmol/L (136-145); UREA NITROGEN, BLOOD 9.0 mg/dL (7-18)
--- NOTE | 2025-04-02 11:07 | PN ---
[facility] PROGRESS NOTE Date of Service: Apr 02, 2025 Time of Service: 10:59 Dr. Rodriguez SUBJECTIVE: Follow up visit for a 65-year-old female admitted to the hospital for syncope episode. Patient also on admission noted with urinalysis findings of UTI, initiated on IV Rocephin. So far urine culture is negative. Consultation with Cardiology has been requested pending evaluation. 04/01/2025: Over the past 24 hours no major events reported. 2D echo revealed EF of 60-65%. Patient remains on IV Rocephin for acute UTI, cultures showing E coli. Morning labs reviewed. 04/02/25 patient was seen by nurse practitioner and physician during rounding in room 431. CT Chest showed negative for pulmonary embolism. No evidence of aneurysmal dilation or dissection. Also showed small hypodense lesions in the right lobe of thyroid gland anteriorly and tiny calcified focus in the right lobe. Probably colloid nodules. We will order ultrasound thyroid for further evaluation. Renal ultrasound showed unremarkable ultrasound of the kidneys and urinary bladder. As per cobbler apprentice patient's medication has been adjusted. Patient's oxycodone was stopped and carvedilol was changed from 12.5 mg b.i.d. to 3.125 mg b.i.d.. Patient was cleared by Cardiology to be discharged and follow up outpatient within 1 to 2 weeks. Her blood pressure medication will be reassessed in the office. Patient is also growing E coli in the urine. At this moment patient continues to be on Rocephin as per ID. We will seek further recommendation for outpatient antibiotics per ID. Patient also has a history of wound VAC s/p total hip arthroplasty March 26, 2025. pilot manager is working on home health for the care of wound VAC. We will continue to monitor patient in the meantime. A.m. lab REVIEW OF SYSTEMS: CONSTITUTIONAL: Generalized malaise NEUROLOGICAL: Denies any dizziness or lightheadedness ENT: No hearing loss, otalgia, otorrhea, rhinitis, rhinorrhea, hoarseness, or sore throat. CARDIOVASCULAR: Patient denies any episode of loss of consciousness PULMONARY: Denies any shortness of breath, cough, phlegm/sputum, hemoptysis, pleuritic chest pain. SLEEP: Denies morning headaches, daytime somnolence or napping. Denies di fficulty falling asleep, staying asleep, waking from sleep. Denies knowledge of snoring. GASTROINTESTINAL: Patient denies feeling any nausea or vomiting or abdominal vein GENITOURINARY: Denies frequency, urgency, nocturia, hematuria or incontinence (Storage/Irritative symptoms.) Low urinary stream, straining to void, urinary intermittency or hesitancy, splitting of the voiding stream, terminal dribbling. ENDOCRINOLOGIC: Denies polyuria, polydipsia, polyphagia or heat/cold intolerances. HEMATOLOGIC: Denies thrombophilia/previous clots, or coagulopathy/bleeding disorders. ONCOLOGIC: Denies personal history of malignancy. DERMATOLOGIC: Denies rashes or pruritus. PSYCHIATRIC: Denies any suicidal or homicidal ideation. Denies hallucinations. PHYSICAL EXAM: GENERAL APPEARANCE: The patient is awake, alert, and oriented, in no acute cardiopulmonary distress. NEUROLOGICAL: Cranial nerves II-XII grossly intact. Motor is 5/5 in bilateral upper and lower extremities proximal to distal. No sensory deficits. HEENT: Face is symmetric. Pupils are equal and reactive. Extraocular movements are intact. NECK: Supple. No JVD. No thyromegaly. No submental, submandibular, pre- /postauricular, occipital or supraclavicular lymphadenopathy. CHEST: Normal chest expansion. No Telemetry. LUNGS: Absence of any rales, rhonchi or any wheezing. CARDIOVASCULAR: Regular. S1 and S2 normal. No appreciable rubs, murmurs or gallops. ABDOMEN: Soft, nontender, and nondistended. There is no rebound, voluntary guarding, or rigidity. : Deferred. No Marrero. EXTREMITIES: There is no significant swelling noted of bilateral lower extremity, right hip incision site appears clean dry and intact with VAC noted Vital Signs (last 8hr) Date Time Temp Pulse Resp B/P (MAP) Pulse Ox O2 Delivery O2 Flow Rate FiO2 04/02/25 09:17 139/79 04/02/25 07:05 98.1 70 18 139/79 99 Room Air 04/02/25 03:38 97.9 68 16 128/65 94 Room Air LABS: Laboratory: Test 04/02/25 03:09 Range/Units White Blood Count 7.4 4.8-10.8 K/uL Red Blood Count 3.44 L 4.00-5.50 MIL/uL Hemoglobin 10.3 L 12.0-16.0 g/dL Hematocrit 32.1 L 36-48 % Mean Corpuscular Volume 93.3 79-99 fL Mean Corpuscular Hemoglobin 29.9 27.0-33.0 pg Mean Corpuscular Hemoglobin Concent 32.1 32.0-36.0 g/dL Red Cell Distribution Width 12.9 11.0-15.5 % Platelet Count 255 130-400 K/uL Mean Platelet Volume 8.5 7.5-10.5 fL Immature Granulocyte % (Auto) 0.5 0-1 % Neutrophils (%) (Auto) 49.8 40.0-77.0 % Lymphocytes (%) (Auto) 34.6 21.0-51.0 % Monocytes (%) (Auto) 11.8 3.0-13.0 % Eosinophils (%) (Auto) 2.6 0.0-8.0 % Basophils (%) (Auto) 0.7 0.0-5.0 % Neutrophils # (Auto) 3.7 1.8-7.7 K/uL Lymphocytes # (Auto) 2.6 1.0-4.8 K/uL Monocytes # (Auto) 0.9 0.1-1.0 K/uL Eosinophils # (Auto) 0.19 0.00-0.70 K/uL Basophils # (Auto) 0.05 0.00-0.20 K/uL Absolute Immature Granulocyte (auto 0.04 0-1 K/uL Nucleated Red Blood Cells 0.0 0.0-0.19 % Sodium Level 143 136-145 mmol/L Potassium Level 4.1 3.5-5.1 mmol/L Chloride Level 108 101-111 mmol/L Carbon Dioxide Level 29 21-32 mmol/L Blood Urea Nitrogen 9 7-18 mg/dL Creatinine 0.9 0.5-1.0 mg/dL Glomerular Filtration Rate Calc 70 >90 mL/min Random Glucose 96 70-105 mg/dL Total Calcium 8.5 8.5-10.1 mg/dL Current Medications Medications (Trade) Dose Ordered Sig/Felecia Route PRN Reason Start Time Stop Time Status Last Admin Dose Admin Acetaminophen (TYLenol 325MG TAB) 650 mg Q6H PRN PO MILD PAIN (1-3) 03/30/25 14:00 04/29/25 13:59 03/31/25 17:01 650 MG Acetaminophen (TYLenol 325MG TAB) 650 mg Q6H PRN PO MILD PAIN (1-3) 03/30/25 14:00 04/29/25 13:59 Aspirin (Aspirin 81mg Ec Tab) 81 mg BID PO 03/31/25 09:00 04/30/25 08:59 04/02/25 09:18 81 MG Atorvastatin Calcium (LIPItor 10MG) 5 mg HS PO 03/31/25 21:00 04/30/25 20:59 04/01/25 21:01 5 MG Carvedilol (Coreg 3.125MG) 3.125 mg BID PO 04/01/25 21:00 05/01/25 20:59 04/02/25 09:17 3.125 MG Ceftriaxone Sodium (ROCEphine 1G INJ) 1 gm BID IVPB 03/30/25 21:00 04/09/25 20:59 04/02/25 09:18 1 GM Docusate Sodium (COLace 100MG CAP) 100 mg BID PO 03/30/25 21:00 04/29/25 20:59 04/02/25 09:18 100 MG Enoxaparin Sodium (Lovenox) 40 mg DAILY SQ 03/31/25 09:00 04/30/25 08:59 04/02/25 09:19 40 MG Famotidine (Pepcid 20mg Tab) 20 mg BID PO 03/30/25 21:00 04/29/25 20:59 04/02/25 09:18 20 MG Hydralazine HCl (APRESOLine 20MG INJ) 5 mg Q6H PRN IV ADMINISTER FOR SBP > 160 03/30/25 22:30 04/29/25 22:29 Levothyroxine Sodium (SYNTHroid 50MCG TAB) 50 mcg SYN PO 03/31/25 06:30 04/30/25 06:29 04/02/25 06:06 50 MCG Ondansetron HCl (zoFRAN 4MG INJ) 4 mg Q6H PRN IVP NAUSEA/VOMITING 03/30/25 14:00 04/29/25 13:59 03/31/25 18:53 4 MG Ondansetron HCl (zoFRAN 4MG INJ) 4 mg Q6H PRN IVP NAUSEA/VOMITING 03/30/25 14:00 04/02/25 07:44 DC Polyethylene Glycol (MIRalax 3350 17 GM POWD.PACK) 17 gm DAILY PRN PO constipation 03/30/25 14:00 04/29/25 13:59 Sodium Chloride 1,000 ml @ 75 mls/hr [id number] IV 03/30/25 16:00 04/01/25 10:55 DC 03/30/25 21:42 75 MLS/HR DIAGNOSTICS / RADIOLOGY: [ ] ASSESSMENT: Near-syncope with possible syncope, POA Possible vasovagal syncope, POA Leukocytosis, POA Urinary tract infection, POA Recent history of right knee arthroplasty in [place], [place], 03/26/2025, POA Recent history of UTI three weeks ago status post oral antibiotics, POA History of hypertension, POA Recent history of hypotension during hospitalization [place], [place], POA Hyperlipidemia, POA Hypothyroidism, POA History of spinal stimulator, POA Constipation x1 week, POA Rhabdomyolysis POA PLAN: CT Chest showed negative for pulmonary embolism. No evidence of aneurysmal dilation or dissection. Also showed small hypodense lesions in the right lobe of thyroid gland anteriorly and tiny calcified focus in the right lobe. Probably colloid nodules. We will order ultrasound thyroid for further evaluation. Renal ultrasound showed unremarkable ultrasound of the kidneys and urinary bladder. As per cobbler apprentice patient's medication has been adjusted. Patient's oxycodone was stopped and carvedilol was changed from 12.5 mg b.i.d. to 3.125 mg b.i.d.. Patient was cleared by Cardiology to be discharged and follow up outpatient within 1 to 2 weeks. Her blood pressure medication will be reassessed in the office. Patient is also growing E coli in the urine. At this moment patient continues to be on Rocephin as per ID. We will seek further recommendation for outpatient antibiotics per ID. Patient also has a history of wound VAC s/p total hip arthroplasty March 26, 2025. pilot manager is working on home health for the care of wound VAC. We will continue to monitor patient in the meantime. A.m. lab Given recent history of right hip arthroplasty, we will monitor patient closely. PT evaluation We requested consultation with Wound Care with Dr. Beltran Monitor orthostatic vitals to rule out orthostatic hypotension PT OT evaluation Home medications will be reconciled and updated We will keep patient on DVT prophylaxis with Lovenox, GI prophylaxis with Pepcid All labs will be repeated in the morning P.r.n. medications for fever, pain, nausea, constipation Further orders per hospital course ATTESTATION BY PHYSICIAN I have seen and examined the patient. I reviewed the documentation, medical decision making, and treatment plan as noted by the mid-level provider above. I agree with the findings and plan of care. CHICO RODRIGUEZ MD, [facility] Apr 02, 2025 11:07
--- NOTE | 2025-04-02 15:05 | NUR ---
PATIENT GAVE CONSENT FOR ANY ORTHO HH. CALL PLACED TO DR SANA GIFFORD MD WHO WAS THE SURGEON IN [place] THAT DID PATIENTS SURGERY DEC [phone]. SPOKE TO TAVARES WHO DOES REFERALS, GAVE HER INFO ON [facility] AND SHE STATES SHE WOULD SEND THE HH ORDER SPOKE TO [facility], WILL SEND THEM INFO FROM OUR FACILITY
--- NOTE | 2025-04-02 16:00 | NUR ---
ACCEPTED BY [facility]. ADVISED THEM FOR PROBABLE DC TODAY
--- NOTE | 2025-04-02 16:22 | PN ---
INFECTIOUS DISEASE PROGRESS NOTE Date of Service: Apr 02, 2025 SUBJECTIVE: Patient is cleared for discharged on Vantin 200 mg b.i.d. for five days. Prescription was written. PHYSICAL EXAM EYES: Anicteric. Pupils equal and reactive. HENT: No oral thrush seen, moist Oral mucosa NECK: Supple, no JVD or thyromegaly. LUNGS: Good air entry. No rales, no rhonchi. CARDIOVASCULAR: S1, S2 regular. No murmur heard. ABDOMEN: Soft, non tender, bowel sounds present. CENTRAL NERVOUS SYSTEM: Awake, alert, oriented x 3. SKIN: No rashes, no swelling. LYMPHATICS: No peripheral lymphadenopathy MUSCULOSKELETAL: No joint swelling, erythema or tenderness. EXTREMITIES: No cyanosis or clubbing. Recent right LUZ MARIA with Prevena wound VAC in placed. BACK: No deformity, no pressure ulcer. GENITOURINARY: No dysuria or hematuria. Vital Sign (Last 12 Hours) 04/02/25 04/02/25 04/02/25 04/02/25 07:05 09:17 10:00 10:09 Temp 98.1 Pulse 70 75 Resp 18 16 B/P (MAP) 139/79 139/79 115/62 Pulse Ox 99 99 98 O2 Delivery Room Air Room Air* Room Air O2 Flow Rate 0 FiO2 21 Intake & Output (last 24hrs) 04/01/25 04/01/25 04/02/25 15:00 23:00 07:00 Intake Total 1090.0 ml 1050.0 ml Output Total 200 ml 1350 ml 800 ml Balance 890.0 ml -300.0 ml -800 ml LABS: Laboratory: Test 04/02/25 03:09 Range/Units White Blood Count 7.4 4.8-10.8 K/uL Red Blood Count 3.44 L 4.00-5.50 MIL/uL Hemoglobin 10.3 L 12.0-16.0 g/dL Hematocrit 32.1 L 36-48 % Mean Corpuscular Volume 93.3 79-99 fL Mean Corpuscular Hemoglobin 29.9 27.0-33.0 pg Mean Corpuscular Hemoglobin Concent 32.1 32.0-36.0 g/dL Red Cell Distribution Width 12.9 11.0-15.5 % Platelet Count 255 130-400 K/uL Mean Platelet Volume 8.5 7.5-10.5 fL Immature Granulocyte % (Auto) 0.5 0-1 % Neutrophils (%) (Auto) 49.8 40.0-77.0 % Lymphocytes (%) (Auto) 34.6 21.0-51.0 % Monocytes (%) (Auto) 11.8 3.0-13.0 % Eosinophils (%) (Auto) 2.6 0.0-8.0 % Basophils (%) (Auto) 0.7 0.0-5.0 % Neutrophils # (Auto) 3.7 1.8-7.7 K/uL Lymphocytes # (Auto) 2.6 1.0-4.8 K/uL Monocytes # (Auto) 0.9 0.1-1.0 K/uL Eosinophils # (Auto) 0.19 0.00-0.70 K/uL Basophils # (Auto) 0.05 0.00-0.20 K/uL Absolute Immature Granulocyte (auto 0.04 0-1 K/uL Nucleated Red Blood Cells 0.0 0.0-0.19 % Sodium Level 143 136-145 mmol/L Potassium Level 4.1 3.5-5.1 mmol/L Chloride Level 108 101-111 mmol/L Carbon Dioxide Level 29 21-32 mmol/L Blood Urea Nitrogen 9 7-18 mg/dL Creatinine 0.9 0.5-1.0 mg/dL Glomerular Filtration Rate Calc 70 >90 mL/min Random Glucose 96 70-105 mg/dL Total Calcium 8.5 8.5-10.1 mg/dL DIAGNOSTICS / RADIOLOGY: PATIENT: LUCIA GEORGE ACCT: [id number] LOC: [facility] U: [id number] AGE/SX: 65/F ROOM: [facility] RE03/30/[address]: JORGE LYON MD : 1960 BED: 1 DIS: STATUS: ADM IN TLOC: SPEC: [id number] AGNES: 03/30/25 STATUS: COMP REQ: [id number] RECD: 03/31/[address] [facility] [address]: SEN IVORY MD SOURCE: [facility] ENTR: 03/31/[address] [facility] [address]: TRAMAINE TABARES MD SPDESC: CLEAN CAT ADRIEL HANCOCK MD ORDERED: AERO ID & SENS Procedure Result Tom Date-Time AEROBIC ID & SENSITIVITIES Final 04/01/25-707 MRL COLONY DESCRIPTION: DAY 1: COLONY COUNT: >100,000 CFU/ML GRAM NEGATIVE RODS IDENTIFICATION AND SENSITIVITY TO FOLLOW ESCHERICHIA COLI E COLI M.I.C. RX --------- ---- AMPICILLIN >16 R AZTREONAM <=4 S CEFAZOLIN 8 R CEFTAZIDIME/AVIBACTAM <=8 S CEFTRIAXONE <=1 S CIPROFLOXACIN >2 R GENTAMICIN <=2 S LEVOFLOXACIN >4 R NITROFURANTOIN <=32 S MEROPENEM <=1 S PIPERACILLIN/TAZOBACTAM <=8 S TRIMETHOPRIM/SUFLAMETHOXAZOLE <=2/38 S ASSESSMENT: Urinary tract infection with E coli. Syncope. Left sided hydronephrosis. Recent right LUZ MARIA on 03/26/2025 with a Prevena wound VAC in place. Hypertension. PLAN: Patient is cleared for discharged on Vantin 200 mg b.i.d. for five days. Prescription was written. This case was reviewed and discussed with my supervising physician Dr. Rich and the above assessment and plan was formulated and agreed upon. ATTESTATION BY PHYSICIAN I have seen and examined the patient. I reviewed the documentation, medical decision making, and treatment plan as noted by the mid-level provider above. I agree with the findings and plan of care. ROGER RICH MD, MIRTA [facility] Apr 02, 2025 16:22
--- NOTE | 2025-04-02 18:24 | NUR ---
SPOKE TO Edna OCHOA RN FROM [facility]. GAVE REPORT ON PATIENT DON STATED THEY WILL FOLLOW UP WITH PATIENT.
--- NOTE | 2025-04-02 18:50 | NUR ---
REACHED OUT TO TAX EXAMINER [facility]. MISCOMMUNICATION EARLIER RE PATIENTS NEEDS W/ REGARD TO WOUND CARE. EXPLAINED PATIENTS DRESSING IS A ONE TIME DEAL WITH A VACUUM THAT IS DISPOSABLE AND REMOVED WHEN THE BATTERY WEARS OUT- AND THE OTHER PART OF THE DRESSING WILL BE REMOVED BY MD OFFICE. EXPLAINED THAT HOME HEALTH WAS SETUP ALREADY BUT DID NOT REALIZE THAT THE TAX EXAMINER WAS WAITING ON CM TO ADVISED HER OF SAME. STATED SHE WOULD DC IN AM
--- NOTE | 2025-04-02 23:47 | CONS ---
INFECTIOUS DISEASE CONSULTATION DATE OF SERVICE: 03/30/2025 REQUESTING PHYSICIAN: Hernán Hendricks MD REASON FOR CONSULTATION: UTI and antibiotic management. HISTORY OF PRESENT ILLNESS: This is a 65-year-old female with a history of hypertension, hypothyroidism, depression, and osteoarthritis, who presents to the hospital with body weakness, nausea, vomiting, and near syncope. The patient got up to use the restroom, became diaphoretic, woozy, and had some palpitations and peed all over. The patient never lost consciousness and decided to come to Emergency Room to be evaluated. The patient stated night before she had urinary frequency and was urinating almost every hour. In the Emergency Room, the patient was found with positive urinalysis. Denied cough, shortness of breath, no palpitations or orthopnea. PAST MEDICAL HISTORY: * Hypertension * Dyslipidemia * Osteoarthritis * Hypothyroidism PAST SURGICAL HISTORY: * Bilateral shoulder surgery. * Recent right total hip arthroplasty ALLERGIES: No known drug allergies. CURRENT MEDICATIONS: Reviewed. SOCIAL HISTORY: Lives with . No alcohol, tobacco or illicit drug use. FAMILY HISTORY: Noncontributory. REVIEW OF SYSTEMS: Greater than 10 systems were reviewed, negative except as documented above. PHYSICAL EXAMINATION: GENERAL: An elderly female. VITAL SIGNS: Temperature 98.3, pulse 75, respirations 15, and BP 122/67. EYES: No icterus. Pupils equal and reactive. HENT: No oral thrush seen. Moist oral mucosa. NECK: Supple. No JVD or thyromegaly. LUNGS: Good air entry. No rales, no rhonchi. CARDIOVASCULAR: S1 and S2. Regular. No murmur heard. ABDOMEN: Full, soft, nontender. Bowel sound is present. CENTRAL NERVOUS SYSTEM: Awake, alert, oriented x 3. No focal deficits. SKIN: No rashes, no itchiness. LYMPHATIC: No peripheral lymphadenopathy. BACK: No deformity or pressure ulcer. MUSCULOSKELETAL: No joint swelling or tenderness. LABORATORY DATA: Sodium 139, potassium 4.3, BUN 16, creatinine 1.1. WBC 13.9, hemoglobin 12.2, and platelets 263. Urinalysis, wbc 11-25, leukocytosis 75. Radiology, chest x-ray is unremarkable. ASSESSMENT: A 65-year-old female with presented with generalized body weakness and dizziness. CURRENT PROBLEMS: Include, * Urinary tract infection. * Dizziness. * Hypothyroidism. * Hypertension. * Leukocytosis. PLAN: * Continue nutritional support. * Continue pain management. * Continue antibiotics. * Monitor electrolytes. * Continue DVT prophylaxis. * Continue Synthroid. * The patient will be followed up closely. Thank you for allowing me to participate in the care of this patient. TID: [id number] RECEIPT: [id number]
[2025-04-03 03:26] LABS: IMMATURE GRANULOCYTE ABSOLUTE 0.07 K/uL (0-1); NUCLEATED RED BLOOD CELLS 0.0 % (0.0-0.19); PLATELET COUNT (AUTO) 292 K/uL (130-400); RED BLOOD CELL COUNT(AUTO) 3.61 MIL/uL (4.00-5.50); RED CELL DISTRIBUTION WIDTH 13.0 % (11.0-15.5); WHITE BLOOD COUNT (AUTO) 8.4 K/uL (4.8-10.8)
[2025-04-03 03:42] LABS: ASPARTATE AMINOTRANSFERASE 29.0 U/L (10-37); CREATININE 1.0 mg/dL (0.5-1.0); GLOMERULAR FILTR. RATE CALC 62.0 mL/min (>90); GLUCOSE,RANDOM 113.0 mg/dL (70-105); SODIUM SERUM 141.0 mmol/L (136-145); TOTAL PROTEIN, SERUM 5.7 g/dL (6.0-8.3); UREA NITROGEN, BLOOD 15.0 mg/dL (7-18)
[2025-04-03 04:00] VITALS: BP 120/67; PULSE 74
[2025-04-03 04:01] VITALS: BP 114/75; PULSE 87
[2025-04-03 04:04] VITALS: BP 110/81; PULSE 84
--- NOTE | 2025-04-03 06:15 | HMCIMG ---
EXAMINATION: ULTRASOUND OF THE THYROID. CLINICAL HISTORY: Thyroid nodules. COMPARISON: CT chest dated 03/31/2025. TECHNIQUE: Transverse and longitudinal images were obtained through both lobes and the isthmus of the thyroid. FINDINGS: The left thyroid lobe is not visualized, post thyroidectomy status. No recurrent lesions seen. The right thyroid gland is normal in caliber with homogenous tissue echotexture. The right thyroid lobe measures 3.5 x 1.4 x 1.3 cm in the craniocaudal, AP, and transverse dimensions respectively. The isthmus measures 0.2 cm in AP dimension. Right lobe: There is a hypoechoic solid nodule that measures 1.4 x 1.0 x 1.5 cm at the upper pole (TR4). There is a hypoechoic solid nodule that measures 1.4 x 0.7 x 1.4 cm at the mid pole (TR4). No significantly enlarged lymph nodes. IMPRESSION: Post left thyroidectomy status. Nodules in the right lobe of the thyroid. TI-RADS follow up recommendations: TR1: no FNA required TR2: no FNA required TR3: more than or equal to 1.5 cm follow up, more than or equal to 2.5 cm FNA follow up: 1, 3 and 5 years TR4: more than or equal to 1.0 cm follow up, more than or equal to 1.5 cm FNA follow up: 1, 2, 3 and 5 years TR5: more than or equal to 0.5 cm follow up, more than or equal to 1.0 cm FNA annual follow up for up to 5 years /Brandyn
[2025-04-03] MEDS ORDERED: FAMO20TA8 PO (06:24)
[2025-04-03] MEDS ORDERED: CARV3.1262 PO (06:24)
[2025-04-03 07:35] VITALS: BP 141/74; PULSE 75; RESP 18; TEMP 98.3
[2025-04-03 07:40] VITALS: BP 135/75; PULSE 75; RESP 18; TEMP 98.5
--- NOTE | 2025-04-03 08:45 | NUR ---
PATIENT DISCHARGE RECEIVED REPORT FROM NIGHT NURSE. PATIENT WITH DISCHARGE ORDERS IN PLACE. PATIENT DISCHARGED TO HOME WITH [facility]. REPORT WAS CALLED 04/02 TO DON CH. CALLED [facility] TO VERIFY S/W NESTOR. PERIPHERAL IV REMOVED CATHETER INTACT. DISCHARGE INSTRUCTIONS GIVEN. PATIENT AWARE TO F/U WITH PCP. PATIENT AWARE TO F/U WITH DR. DUEÑAS. PATIENT AWARE TO F/U WITH WOUND CARE. PRESCRIPTIONS FAXED TO PHARMACY PATIENT AWARE. ALL QUESTIONS ANSWERED. WOUND VAC SEALED AND INTACT. NO SIGNS OF LEAKAGE NOTED. PATIENT RIDE PENDING. WAITING FOR .
--- NOTE | 2025-04-03 09:45 | NUR ---
PATIENT OFF UNIT PATIENT'S RIDE HERE. PATIENT TAKEN DOWN BY WHEELCHAIR TO PRIVATE VEHICLE. ALL BELONGINGS SENT WITH PATIENT.
--- NOTE | 2025-04-03 12:13 | DS ---
Discharge Summary Hospital Course Summary: DATE OF ADMISSION:[03/30/2025] DATE OF DISCHARGE:[04/03/2025] DISPOSITION:[Home] CONDITION:[Medically stable] CONSULTANTS:[Senior Facilities Manager, swapna cortes] FOLLOW UP APPOINTMENTS:[] PROCEDURES:[None] IMAGING: report attached to summary MICROBIOLOGY: report attached to summary ACTIVITY:[Independent] HOME MEDICATIONS: see [facility] NEW MEDICATIONS:[Carvedilol, famotidine] EMERGENCY INSTRUCTIONS: The patient was instructed to present to the nearest Emergency departmentr or call 911 once their symptoms will return or worsen [employer](s): Patient is 65 years old female who came to emergency department with a complaint of syncope episodes. On admission urinalysis was noted to be positive for UTI and patient was started on Rocephin. Final urine culture grew E coli. Senior Facilities Manager was requested for the presyncope episode. 2D echo was normal shows 60 to 65% stage I diastolic dysfunction. Chest x-ray negative. CTA PE negative. Extra abdomen shows scoliosis, right pacemaker in the right hip prosthesis. Venous Doppler negative. Renal ultrasound negative. Patient was evaluated by the oncology rep and carvedilol 12.5 mg was discontinued and patient was started on carvedilol 3.25 mg b.i.d.. Patient home medication oxycodone was also discontinued. Patient today was cleared to be discharged oncology rep follow patient 1 to 2 weeks. Patient was also advised to follow up with PCP in 2 to 3 days Procedure(s): REVIEW OF SYSTEMS: CONSTITUTIONAL: Denies Any malaise NEUROLOGICAL: Denies any dizziness or lightheadedness ENT: No hearing loss, otalgia, otorrhea, rhinitis, rhinorrhea, hoarseness, or sore throat. CARDIOVASCULAR: Patient denies any episode of loss of consciousness PULMONARY: Denies any shortness of breath, cough, phlegm/sputum, hemoptysis, pleuritic chest pain. SLEEP: Denies morning headaches, daytime somnolence or napping. Denies diff iculty falling asleep, staying asleep, waking from sleep. Denies knowledge of snoring. GASTROINTESTINAL: Patient denies feeling any nausea or vomiting or abdominal vein GENITOURINARY: Denies frequency, urgency, nocturia, hematuria or incontinence (Storage/Irritative symptoms.) Low urinary stream, straining to void, urinary intermittency or hesitancy, splitting of the voiding stream, terminal dribbling. ENDOCRINOLOGIC: Denies polyuria, polydipsia, polyphagia or heat/cold intolerances. HEMATOLOGIC: Denies thrombophilia/previous clots, or coagulopathy/bleeding d isorders. ONCOLOGIC: Denies personal history of malignancy. DERMATOLOGIC: Denies rashes or pruritus. PSYCHIATRIC: Denies any suicidal or homicidal ideation. Denies hallucinations. PHYSICAL EXAM: GENERAL APPEARANCE: The patient is awake, alert, and oriented, in no acute cardiopulmonary distress. NEUROLOGICAL: Cranial nerves II-XII grossly intact. Motor is 5/5 in bilateral upper and lower extremities proximal to distal. No sensory deficits. HEENT: Face is symmetric. Pupils are equal and reactive. Extraocular movements are intact. NECK: Supple. No JVD. No thyromegaly. No submental, submandibular, pre- /postauricular, occipital or supraclavicular lymphadenopathy. CHEST: Normal chest expansion. No Telemetry. LUNGS: Absence of any rales, rhonchi or any wheezing. CARDIOVASCULAR: Regular. S1 and S2 normal. No appreciable rubs, murmurs or gallops. ABDOMEN: Soft, nontender, and nondistended. There is no rebound, voluntary guarding, or rigidity. : Deferred. No Marre[place]. EXTREMITIES: There is no significant swelling noted of bilateral lower extremity, right hip incision site appears clean dry and intact with VAC noted Assessment/Plan: ASSESSMENT: Near-syncope with possible syncope, POA Possible vasovagal syncope, POA Leukocytosis, POA Urinary tract infection, POA Recent history of right knee arthroplasty in [place], [place], 03/26/2025, POA Recent history of UTI three weeks ago status post oral antibiotics, POA History of hypertension, POA Recent history of hypotension during hospitalization [place], [place], POA Hyperlipidemia, POA Hypothyroidism, POA History of spinal stimulator, POA Constipation x1 week, POA Rhabdomyolysis POA Home Medications: Active Scripts Famotidine (Famotidine) 20 Mg Tablet, 20 MG PO BID, #60 TAB Prov:TAMANNA DOAN BIOINFORMATICS ASSOCIATE 04/03/25 Carvedilol (Coreg) 3.125 Mg Tablet, 3.125 MG PO BID, #60 TAB Prov:TAMANNA DOAN BIOINFORMATICS ASSOCIATE 04/03/25 Reported Medications Fluvastatin Sodium (Fluvastatin Sodium) 20 Mg Capsule, 1 TAB PO DAILY for high cholesterol for 30 Days, #30 CAP 0 Refills 03/30/25 Aspirin (Aspirin EC) 81 Mg Tablet.dr, 1 TAB PO BID for 30 Days, #30 TAB 0 Refills 03/30/25 Levothyroxine Sodium (Levothyroxine) 50 Mcg Capsule, 1 TAB PO DAILY for 30 Days, #30 CAP 0 Refills 03/30/25 Discontinued Reported Medications Carvedilol (Carvedilol) 12.5 Mg Tablet, 1 TAB PO BID for 30 Days, #60 TAB 0 Refills 03/30/25 Time spent arranging discharge: 31-60 minutes ATTESTATION BY PHYSICIAN I have seen and examined the patient. I reviewed the documentation, medical decision making, and treatment plan as noted by the mid-level provider above. I agree with the findings and plan of care. CHICO RODRIGUEZ MD, KATARZYNA B [facility] Apr 03, 2025 12:13
== END 2025-04-03 09:45 | disposition home health service (06) | DRG 872 ==
LOC: EDH 11:35 → EDHIP 13:28 → 4AH 18:00
PROVIDERS: ADMIT Internal Medicine; ATTEND Internal Medicine
DX: A41.9 Sepsis, unspecified organism (principal); M62.82 Rhabdomyolysis; N13.6 Pyonephrosis; B96.20 Unspecified Escherichia coli [E. coli] as the cause of diseases classified elsewhere; I12.9 Hypertensive chronic kidney disease with stage 1 through stage 4 chronic kidney disease, or unspecified chronic kidney disease; N18.9 Chronic kidney disease, unspecified; E03.9 Hypothyroidism, unspecified; F32.A Depression, unspecified; Z96.651 Presence of right artificial knee joint; E78.5 Hyperlipidemia, unspecified; I25.10 Atherosclerotic heart disease of native coronary artery without angina pectoris; K59.00 Constipation, unspecified; Z96.641 Presence of right artificial hip joint; E86.0 Dehydration
CPT/HCPCS: 36415; 71045; 71270; 74018; 76536; 76770; 80048; 80053; 81001; 82550; 83605; 83735; 84145; 84484; 85025; 85027; 85378; 85610; 85730; 86140; 87086; 87186; 93005; 93306; 93356; 93970; 96374; 99285; G0378; J0696; J1650; J1885; J2405; Q9967